=== PATIENT | female | born 1950 | race Caucasian/White ===

== ENCOUNTER → 2017-05-26 08:57 | Outpatient (CLI) | payer MEDICARE, SELFPAY ==
--- NOTE | 2017-05-26 09:01 | RAD_ITS ---
STUDY: X-RAY - RIGHT ANKLE REASON FOR EXAM: Female, 67 years old. Trauma TECHNIQUE: 3 view(s) of the ankle. COMPARISON: None. FINDINGS: Normal visualized distal tibia. There is an obliquely oriented fracture through the distal fibular shaft with minor separation of fracture fragments.. Normal medial and lateral malleoli. Normal tibiotalar articulation and ankle mortise. Normal visualized talus and calcaneus. The visualized subtalar, talonavicular, calcaneocuboid and tarsal articulations are normal. Soft tissue swelling overlying the lateral malleolus. RAD/Ankle min 3 Views IMPRESSION: Acute fracture of the distal fibular shaft. Electronically Signed: Rick Redd MD at 23:59 EST , Service support ,
== END ==
PROVIDERS: Family Provider Nurse Practitioner Family; PCP Nurse Practitioner Family; Visit Provider Orthopaedic Surgery
DX: S82.831A Other fracture of upper and lower end of right fibula, initial encounter for closed fracture (principal); X58.XXXA Exposure to other specified factors, initial encounter
CPT/HCPCS: 73610

== ENCOUNTER → 2017-06-07 11:08 | Outpatient (CLI) | payer MEDICARE, OTHER, SELFPAY ==
[2017-06-07 12:21] LABS: Absolute Neutrophil Count 2.6 X10^3/uL (2.0-7.7); Basophil# 0.06 X10^3/uL; Basophil% 1.1 % (0-1); Eosinophil# 0.15 X10^3/uL; Eosinophils% 2.8 % (0-5); Hematocrit 40.8 % (37-47); Hemoglobin 13.2 g/dl (12.0-15.0); Lymphocyte % 39.3 % (19-41); Mean Corp Hgb Conc 32.4 g/gl (32-36); Mean Corpuscular Hgb 29.9 pg (27.0-32.0); Mean Corpuscular Volume 92.5 fL (81-99); Mean Platelet Vol. 11.8 fl (6.2-12.0); Monocyte# 0.45 X10^3/uL; Monocyte% 8.4 % (0-10); Neutrophil # 2.57 X10^3/uL (2.7-7.7); Neutrophil % 48.2 % (47-70); Platelet Count 287 K/mm3 (150-450); RBC Distribution Width CV 14.3 % (11.6-14.6); RBC Distribution Width SD 47.5 fl (35.1-43.9); Red Blood Count 4.41 M/mm3 (4.2-5.4); White Blood Count 5.3 K/mm3 (4.4-11.0)
[2017-06-07 12:24] LABS: POSITIVE COUNT NO; POSITIVE DIFFERENTIAL NO; POSITIVE MORPHOLOGY NO
[2017-06-07 12:42] LABS: AST(SGOT) 17 U/L (15-37); Alanine Aminotransfer ALT/SGPT 20 U/L (13-56); Albumin, Serum 3.8 g/dL (3.2-5.0); Alkaline Phosphatase 85 U/L (45-117); Anion Gap 7 (5-15); BUN 14 mg/dL (7-18); BUN/Creat Ratio 13.2 RATIO (10-20); Calcium,Total 8.5 mg/dL (8.5-10.1); Chloride 106 mmol/L (98-107); Creatinine, Serum 1.06 mg/dL (0.55-1.02); EST Glomerular Filtration Rate 55 mL/min (>60); Est Glom Filt Rate - Afr Amer 66 mL/min (>60); Globulin 3.7 g/dL (2.2-4.2); Glucose 81 mg/dL (74-106); Potassium 3.9 mmol/L (3.5-5.1); Protein, Total 7.5 g/dL (6.4-8.2); Sodium Level 140 mmol/L (136-145)
== END ==
PROVIDERS: Family Provider Nurse Practitioner Family; PCP Nurse Practitioner Family; Visit Provider Internal Medicine Rheumatology
DX: M06.4 Inflammatory polyarthropathy (principal); M35.00 Sjogren syndrome, unspecified; K21.9 Gastro-esophageal reflux disease without esophagitis; R76.8 Other specified abnormal immunological findings in serum; M17.0 Bilateral primary osteoarthritis of knee
CPT/HCPCS: 36415; 80053; 85025

== ENCOUNTER → 2017-06-23 10:01 | Outpatient (CLI) | payer MEDICARE, OTHER, SELFPAY ==
--- NOTE | 2017-06-23 10:03 | RAD_ITS ---
STUDY: X-RAY - RIGHT ANKLE REASON FOR EXAM: Female, 67 years old. Follow-up fracture. TECHNIQUE: 3 view(s) of the ankle. COMPARISON: May 26, 2017. FINDINGS: Normal visualized distal tibia. There is evidence of callus formation and healing of the oblique distal fibular fracture without change in alignment. Normal tibiotalar articulation and ankle mortise. Normal visualized talus and calcaneus. The visualized subtalar, talonavicular, calcaneocuboid and tarsal articulations are normal. The soft tissue structures are unremarkable. RAD/Ankle min 3 Views IMPRESSION: Healing fracture of the distal fibula. Electronically Signed: Hector Langston DO at 18:04 EDT Tel [phone], Service support ,
== END ==
PROVIDERS: Family Provider Nurse Practitioner Family; PCP Nurse Practitioner Family; Visit Provider Orthopaedic Surgery
DX: S82.831A Other fracture of upper and lower end of right fibula, initial encounter for closed fracture (principal); X58.XXXA Exposure to other specified factors, initial encounter
CPT/HCPCS: 73610

== ENCOUNTER → 2017-12-09 12:57 | Outpatient (CLI) | payer MEDICARE, OTHER, SELFPAY ==
[2017-12-09 14:19] LABS: Absolute Lymphocyte Count 2.12 X10^3/ul (0.83-4.51); Absolute Neutrophil Count 3.3 X10^3/uL (2.0-7.7); Basophil# 0.05 X10^3/uL; Basophil% 0.8 % (0-1); Eosinophil# 0.13 X10^3/uL; Eosinophils% 2.1 % (0-5); Hematocrit 42.1 % (37-47); Hemoglobin 13.3 g/dl (12.0-15.0); Lymphocyte # 2.12 X10^3/ul (4.0); Mean Corp Hgb Conc 31.6 g/gl (32-36); Mean Corpuscular Hgb 29.2 pg (27.0-32.0); Mean Corpuscular Volume 92.5 fL (81-99); Mean Platelet Vol. 11.9 fl (6.2-12.0); Monocyte# 0.48 X10^3/uL; Monocyte% 7.9 % (0-10); Neutrophil # 3.28 X10^3/uL (2.7-7.7); Neutrophil % 54.2 % (47-70); Platelet Count 294 K/mm3 (150-450); RBC Distribution Width CV 14.4 % (11.6-14.6); RBC Distribution Width SD 48.6 fl (35.1-43.9); Red Blood Count 4.55 M/mm3 (4.2-5.4); White Blood Count 6.1 K/mm3 (4.4-11.0)
[2017-12-09 14:20] LABS: POSITIVE COUNT NO; POSITIVE DIFFERENTIAL NO; POSITIVE MORPHOLOGY NO
[2017-12-09 14:31] LABS: ALB/GLOB Ratio 1.1 RATIO (0.9-2.4); AST(SGOT) 20 U/L (15-37); Alanine Aminotransfer ALT/SGPT 26 U/L (13-56); Albumin, Serum 3.7 g/dL (3.2-5.0); Alkaline Phosphatase 77 U/L (45-117); Anion Gap 7 (5-15); BUN 14 mg/dL (7-18); BUN/Creat Ratio 12.7 RATIO (10-20); Calcium,Total 8.8 mg/dL (8.5-10.1); Chloride 107 mmol/L (98-107); EST Glomerular Filtration Rate 53 mL/min (>60); Est Glom Filt Rate - Afr Amer 64 mL/min (>60); Globulin 3.5 g/dL (2.2-4.2); Glucose 78 mg/dL (74-106); Potassium 3.8 mmol/L (3.5-5.1); Protein, Total 7.2 g/dL (6.4-8.2); Sodium Level 144 mmol/L (136-145)
== END ==
PROVIDERS: Family Provider Nurse Practitioner Family; PCP Nurse Practitioner Family; Visit Provider Internal Medicine Rheumatology
DX: M06.4 Inflammatory polyarthropathy (principal); M35.00 Sjogren syndrome, unspecified; K21.9 Gastro-esophageal reflux disease without esophagitis; R76.8 Other specified abnormal immunological findings in serum; M17.0 Bilateral primary osteoarthritis of knee
CPT/HCPCS: 36415; 80053; 85025

== ENCOUNTER → 2018-03-01 08:47 | Outpatient (CLI) | payer MEDICARE, OTHER, SELFPAY ==
[2018-03-01 10:36] LABS: Absolute Lymphocyte Count 1.92 X10^3/ul (0.83-4.51); Absolute Neutrophil Count 2.6 X10^3/uL (2.0-7.7); Basophil# 0.06 X10^3/uL; Basophil% 1.2 % (0-1); Eosinophil# 0.16 X10^3/uL; Eosinophils% 3.1 % (0-5); Hematocrit 41.6 % (37-47); Hemoglobin 13.4 g/dl (12.0-15.0); Lymphocyte # 1.92 X10^3/ul (4.0); Lymphocyte % 37.3 % (19-41); Mean Corp Hgb Conc 32.2 g/gl (32-36); Mean Corpuscular Hgb 29.7 pg (27.0-32.0); Mean Corpuscular Volume 92.2 fL (81-99); Mean Platelet Vol. 12.1 fl (6.2-12.0); Monocyte# 0.43 X10^3/uL; Monocyte% 8.3 % (0-10); Neutrophil # 2.57 X10^3/uL (2.7-7.7); Neutrophil % 49.9 % (47-70); Platelet Count 252 K/mm3 (150-450); RBC Distribution Width CV 14.4 % (11.6-14.6); RBC Distribution Width SD 47.2 fl (35.1-43.9); Red Blood Count 4.51 M/mm3 (4.2-5.4); White Blood Count 5.2 K/mm3 (4.4-11.0)
[2018-03-01 10:43] LABS: POSITIVE COUNT NO; POSITIVE DIFFERENTIAL NO; POSITIVE MORPHOLOGY NO
[2018-03-01 11:19] LABS: ALB/GLOB Ratio 1.1 RATIO (0.9-2.4); AST(SGOT) 19 U/L (15-37); Alanine Aminotransfer ALT/SGPT 25 U/L (13-56); Albumin, Serum 3.7 g/dL (3.2-5.0); Alkaline Phosphatase 71 U/L (45-117); Anion Gap 7 (5-15); BUN 22 mg/dL (7-18); BUN/Creat Ratio 19.3 RATIO (10-20); Calcium,Total 8.8 mg/dL (8.5-10.1); Chloride 106 mmol/L (98-107); Creatinine, Serum 1.14 mg/dL (0.55-1.02); EST Glomerular Filtration Rate 50 mL/min (>60); Est Glom Filt Rate - Afr Amer 61 mL/min (>60); Globulin 3.4 g/dL (2.2-4.2); Glucose 95 mg/dL (74-106); Protein, Total 7.1 g/dL (6.4-8.2); Sodium Level 139 mmol/L (136-145)
--- OUTSIDE RECORDS SUMMARY | 2018-04-12 21:44 | XMS RPT_ITS | Summary of Care ---
:1950 Author Organization [facility] Address [address] [place] [address] Care Team Providers Name Role Phone Delma Solis Jazlyn TOLL MECHANIC Primary Care Provider FosterDelma her September TOLL MECHANIC Unavailable Reason for Referral Evaluate and Treat (Routine) Status Reason Specialty Diagnoses / Procedures Referred By Contact Referred To Contact Closed Audiology Diagnoses Dizziness and giddiness Jesse Matta Julie A., Jr., DO AuD [id number] [place] [address] Evaluate and Treat (Routine) Status Reason Specialty Diagnoses / Procedures Referred By Contact Referred To Contact Closed Audiology Diagnoses Sensorineural hearing loss, bilateral Jesse Matta Julie A., Jr., DO AuD [id number] [place] [address] Reason for Visit Reason Comments 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 duration: 3 months Location: ears Severity: med Associated symptoms: decreased hearing, cerumen impaction. Patient went to urgent care and PCP for clogged ears and dizziness in Nov. (+) tinnitus Patient states her dizziness is not as bad. She describes a mireya boat. No recent audiograms. Hearing Loss Encounter Details Date Type Department Care Team Description 03/01/2018 Office Visit [facility] ENT Paxton, Jesse Sensorineural hearing loss, bilateral (Primary Dx); Physicians Vin Leonard, Dizziness and giddiness; [address] [place] [address] [place] [address] [phone] Allergies Active Allergy Reactions Severity Noted Date Comments Bacitracin Rash Low 02/01/2014 Per patch testing Gold Sodium Thiosulfate Rash Low 02/01/2014 Per patch testing Nickel Rash Low 02/01/2014 Per patch testing as of this encounter Medications Prescription Sig. Disp. Refills Start Date End Date Status hydroxychloroquine Take by mouth . Active (PLAQUENIL) 200 mg tablet pantoprazole (PROTONIX) 40 MG 01/03/2018 Active tablet as of this encounter Active Problems Problem Noted Date Sensorineural hearing loss, bilateral 03/01/2018 Dizziness and giddiness 03/01/2018 Tinnitus of both ears 03/01/2018 Carpal tunnel syndrome on right 08/06/2016 Social History Tobacco Use Types Packs/Day Years Used Date Never Smoker Smokeless Tobacco: Never Used Alcohol Use Drinks/Week oz/Week Comments Yes wine and beer Sex Assigned at Date Recorded Not on file as of this encounter Last Filed Vital Signs Vital Sign Reading Time Taken Blood Pressure 149/79 03/01/2018 10:14 AM EST Pulse 67 03/01/2018 10:14 AM EST Temperature 35.9 ??C (96.6 ??F) 03/01/2018 10:14 AM EST Respiratory Rate - - Oxygen Saturation - - Inhaled Oxygen Concentration - - Weight 81.9 kg (180 lb 8 oz) 03/01/2018 10:14 AM EST Height 162.6 cm (5' 4) 03/01/2018 10:14 AM EST Body Mass Index 30.98 03/01/2018 10:14 AM EST in this encounter Instructions Patient Instructions - Jesse Matta Jr., - 03/01/2018 11:00 AM EST Assessment/Plan: Diagnoses and all orders for this visit: Sensorineural hearing loss, bilateral - Ambulatory referral to Audiology; Future Essentially normal hearing testing as reviewed with the patient on her hearing testing. Dizziness and giddiness - Ambulatory referral to Audiology; Future I have recommended vng testing and she is schedule dfor 28 Apr 2018. I will see her back 7-10 days post testing. Tinnitus of both ears I have discussed the etiology of the patient's tinnitus as it relates to loss of outer hair cells within the cochlea. This loss of cells is testable through the audiogram which was also reviewed withthe patient. Unfortunately, there is no cure for tinnitus though 1 in 10 patients have stated they have improvement with lipoflavenoid vitamin supplements. Currently, the best treatment for tinnitus iscalled masking techniques. This involves background noise to mask or decrease attention on the noise in the ears. This involves having a tv, or radio, or fan on in the background to produce ambient noise. However, any time you start focusing on the sound it will seem louder, if you are startled and y our fight or flight system kicks in it will be louder as all your senses are heightened, the more I discuss the sound the more you will focus on it and it will seem louder. in this encounter Progress Notes Jesse Matta Jr., DO - 03/01/2018 10:21 AM ESTSubjective Patient ID: Michaela Kilgore is a 68 y.o. female. 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 duration: 3 months Location: earsSeverity: med Associated symptoms: decreased hearing, cerumen impaction. Patient went to urgent care and PCP for clogged ears and dizziness in Nov. (+) tinnitus Patient states her dizziness isnot as bad. She describes a mireya boat. No recent audiograms. Dizziness started 3 months ago. Very loud ringing and felt motion. Losing balance and needing stepto compensate for loss of balance. Can now drive where she avoided it previously. Ringing is diminished. Last hearing test was many years ago. The following portions of the patient's history were reviewed and updated as appropriate: allergies,current medications, past family history, past medical history, past social history, past surgical history and problem list. Review of Systems Constitutional: Negative for chills and diaphoresis. HENT: Negative for ear discharge and ear pain. Eyes: Negative for discharge and redness. Respiratory: Negative for apnea and cough. Cardiovascular: Negative for chest pain and palpitations. Musculoskeletal: Negative for neck pain and neck stiffness. Skin: Negative for color change and pallor. Allergic/Immunologic: Negative for immunocompromised state. Neurological: Positive for dizziness. Negative for facial asymmetry and numbness. Hematological: Does not bruise/bleed easily. Psychiatric/Behavioral: Negative for agitation and confusion. Objective Physical Exam Constitutional: She is oriented to person, place, and time. She appears well- developed and well-nourished. The patient is well-developed and well-nourished without obvious deformity. HENT: Head: Normocephalic and atraumatic. Right Ear: Tympanic membrane, external ear and ear canal normal. Left Ear: Tympanic membrane, external ear and ear canal normal. Nose: Nose normal. Eyes: Pupils are equal, round, and reactive to light. Conjunctivae, EOM and lids are normal. Left eye exhibits no chemosis. Neck: Normal range of motion. Neck supple. No tracheal deviation present. No thyromegaly present. Cardiovascular: Normal rate, regular rhythm and normal heart sounds. Pulmonary/Chest: Effort normal and breath sounds normal. No stridor. Lymphadenopathy: Head (right side): No submental, no submandibular, no preauricular, no posterior auricular and no occipital adenopathy present. Head (left side): No submental, no submandibular, no preauricular, no posterior auricular and no occipital adenopathy present. She has no cervical adenopathy. Right cervical: No superficial cervical adenopathy present. Left cervical: No superficial cervical and no deep cervical adenopathy present. Neurological: She is alert and oriented to person, place, and time. Coordination and gait normal. Cranial nerves 2-12 are grossly intact Fine motor touch and tracking appear normal. Rhomberg normal fakuda step test normal felisha hallpike normal Skin: Skin is warm and dry. Psychiatric: She has a normal mood and affect. Her behavior is normal. Her mood appears not anxious.Her affect is not angry. Her speech is not delayed and not slurred. She is not agitated and not aggressive. Assessment/Plan: Diagnoses and all orders for this visit: Sensorineural hearing loss, bilateral - Ambulatory referral to Audiology; Future Essentially normal hearing testing as reviewed with the patient on her hearing testing. Dizziness and giddiness - Ambulatory referral to Audiology; Future I have recommended vng testing and she is schedule dfor 28 Apr 2018. I will see her back 7-10 days post testing. Tinnitus of both ears I have discussed the etiology of the patient's tinnitus as it relates to loss of outer hair cells within the cochlea. This loss of cells is testable through the audiogram which was also reviewed withthe patient. Unfortunately, there is no cure for tinnitus though 1 in 10 patients have stated they have improvement with lipoflavenoid vitamin supplements. Currently, the best treatment for tinnitus iscalled masking techniques. This involves background noise to mask or decrease attention on the noise in the ears. This involves having a tv, or radio, or fan on in the background to produce ambient noise. However, any time you start focusing on the sound it will seem louder, if you are startled and y our fight or flight system kicks in it will be louder as all your senses are heightened, the more I discuss the sound the more you will focus on it and it will seem louder. in this encounter Plan of Treatment Upcoming Encounters Date Type Specialty Care Team Description 04/28/2018 Hospital Encounter Kerry Angel, AuD [address] [place], [place] [id number] 05/05/2018 Office Visit Otolaryngology Jesse Matta Jr., DO [address] [place] [id number] Scheduled Referrals Name Priority Associated Diagnoses Order Schedule Ambulatory referral to Routine Sensorineural hearing loss, Expected: 03/01/2018, Audiology bilateral Expires: 03/01/2019 Ambulatory referral to Routine Dizziness and giddiness Expected: 03/01/2018, Audiology Expires: 03/01/2019 Health Maintenance Due Date Last Done Comments COLONOSCOPY 1950 DEXA SCAN 1950 HEPATITIS C SCREENING 1950 TETANUS EVERY 10 YR 1950 ZOSTER VACCINES (1 of 2) 01/27/2000 PNEUMOCOCCAL VACCINE AGE 65+ (1 of 2 - PCV13) 2015 SEQUENTIAL INFLUENZA VACCINE (#1) 2017 as of this encounter Visit Diagnoses Diagnosis Sensorineural hearing loss, bilateral - Primary Dizziness and giddiness Tinnitus of both ears Unspecified tinnitus
--- OUTSIDE RECORDS SUMMARY | 2018-04-12 21:45 | XMS RPT_ITS ---
:1950 Author Organization OHIP Support Name Relationship Address Phone MARY GELLER Unavailable [phone] + [place] [address] R Unavailable Unavailable Unavailable NOT GIVEN Unavailable Unavailable Unavailable SPIKE RM Unavailable [address] + [place] [address] DUYEN, MARY Unavailable Unavailable + DUYEN, MARY Unavailable [address] + [place] [address] R Unavailable Unavailable Unavailable DUYEN, MARY Unavailable [address] + [place] [address] R Unavailable Unavailable Unavailable DUYEN, MRAY Unavailable [address] + [place] [address] R Unavailable Unavailable Unavailable DUYEN, MARY Unavailable [address] + [place] [address] R Unavailable Unavailable Unavailable DUYEN, MARY Unavailable [address] + [place] [address] R Unavailable Unavailable Unavailable DUYEN, MARY Unavailable [address] + [place] [address] R Unavailable Unavailable Unavailable DUYEN, MARY Unavailable [address] + [place] [address] R Unavailable Unavailable Unavailable DUYEN, MARY Unavailable [address] + [place] [address] R Unavailable Unavailable Unavailable Care Team Providers Name Role Phone Kathia Cardoso Attending Unavailable Kathia Cardoso Referring Unavailable Adwoa Solis SAMPLE MOUNTER-C Primary Care Unavailable Richie Mane Attending Unavailable Adwoa Solis SAMPLE MOUNTER-C Referring Unavailable Adwoa Solis SAMPLE MOUNTER-C Primary Care Unavailable Richie Mane Attending Unavailable Ludowici, Adwoa SAMPLE MOUNTER-C Referring Unavailable Ludowici, Adwoa SAMPLE MOUNTER-C Primary Care Unavailable Richie Mane Attending Unavailable Ludowici, Adwoa SAMPLE MOUNTER-C Primary Care Unavailable Vellanki, Kathia Attending Unavailable Vellanki, Kathia Referring Unavailable Ludowici, Adwoa SAMPLE MOUNTER-C Primary Care Unavailable Richie Mane Attending Unavailable Ludowici, Adwoa SAMPLE MOUNTER-C Referring Unavailable Ludowici, Adwoa SAMPLE MOUNTER-C Primary Care Unavailable Richie Mane Attending Unavailable Ludowici, Adwoa SAMPLE MOUNTER-C Primary Care Unavailable Vellanki, Kathia Attending Unavailable Vellanki, Kathia Referring Unavailable Ludowici, Adwoa SAMPLE MOUNTER-C Primary Care Unavailable Vellanki, Kathia Attending Unavailable Vellanki, Kathia Referring Unavailable Ludowici, Adwoa SAMPLE MOUNTER-C Primary Care Unavailable Richie Perez Admitting Unavailable Richie Perez Attending Unavailable Ludowici Adwoa September Primary Care Unavailable Richie Perez Admitting Unavailable Richie Perez Attending Unavailable LudowiciSeptember Primary Care Unavailable Shelley Conrad Attending Unavailable LudowiciAdwoa September Primary Care Unavailable Shelley Conrad Admitting Unavailable LudowiciAdwoa September Primary Care Unavailable LudowiciSeptember Admitting Unavailable LudowiciSeptember Attending Unavailable ARTEM GONZALES Attending Unavailable [facility] Primary Care Unavailable Kerry Angel Admitting Unavailable Kerry Angel Attending Unavailable CORTNYE VOGT Admitting Unavailable CORTNEY VOGT Attending Unavailable CORTNEY VOGT Attending Unavailable CORTNEY VOGT Referring Unavailable KAREN VOGT Attending Unavailable SELF, SELF Referring Unavailable KAREN VOGT Attending Unavailable CORTNEY VOGT Referring Unavailable PROBLEMS PROBLEMS DATE TYPE CONDITION / CODE ATTENDING STATUS SOURCE 03/15/2018 Admitting Pain / 121() KAREN VOGT Active [facility] Diagnosis A [place] ([place] Repository 03/15/2018 Admitting Decreased Functional KAREN VOGT Active [facility] Diagnosis Strength / 685() A [place] ([place]) Repository 03/01/2018 Admitting Tinnitus, bilateral ARTEM GONZALES Active [facility] diagnosis / H93.13(ICD-10) EARNEST Three Repository 03/01/2018 Admitting Dizziness and ARTEM GONZALES Active [facility] diagnosis giddiness / EARNEST Three R42(ICD-10) Repository 03/01/2018 Admitting Sensorineural ARTEM GONZALES Active [facility] diagnosis hearing loss, EARNEST Three bilateral / Repository H90.3(ICD-10) 03/01/2018 Unknown M06.4 - Inflammatory Vellanki, 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 / [facility] M06.4(ICD-10) Hospital Repository 03/01/2018 Unknown M35.00 - Sicca Vellanki, Active [facility] syndrome, [facility] unspecified / Hospital M35.00(ICD-10) Repository 03/01/2018 Unknown K21.9 - Vellanki, Active [facility] reflux disease Hospital without esophagitis Repository / K21.9(ICD-10) 03/01/2018 Unknown R76.8 - Other Vellanki, Active [facility] specified abnormal [facility] immunological Hospital findings in serum / Repository R76.8(ICD-10) 03/01/2018 Unknown M17.0 - Bilateral Vellanlili, Active [facility] primary [facility] osteoarthritis of Hospital knee / M17.0(ICD-10) Repository 06/23/2017 Unknown S82.831A - Other Richie Mane Active [facility] fracture of upper Community and lower end of Hospital right fibula, Repository initial encounter for closed fracture / S82.831A(ICD-10) 05/11/2017 Admitting Surgical Follow-up / KAREN VOGT [facility] Diagnosis 104() A [place] ([place]) Repository 04/22/2017 Admitting Carpal tunnel CORTNEY VOGT [facility] Diagnosis syndrome, left upper [place] limb / Repository G56.02(ICD-10) 04/16/2017 Admitting Encounter for other VOGTCORTNEY GIRALDO [facility] Diagnosis preprocedural [place] examination / Repository Z01.818(ICD-10) PROCEDURES PROCEDURES No Procedure Records FoundRESULTS RESULTS CBC W/DIFF, AUTOMATED Collected: 03/18/2018 Status: F Source: [facility] TYPE CODE TESTS RESULT OUT OF RANGE REFERENCE UNITS LAB L100.1000 4.4-11.0 K/mm3 Normal WBC 6.0 LAB L100.1200 4.2-5.4 M/mm3 Normal RBC 4.45 LAB L100.1300 12.0-15.0 g/dl Normal HGB 13.0 LAB L100.1400 37-47 % Normal HCT 40.5 LAB L100.1500 81-99 fL Normal MCV 91.0 LAB L100.1600 27.0-32.0 pg Normal MCH 29.2 LAB L100.1700 32-36 g/gl Normal MCHC 32.1 LAB L100.1810 11.6-14.6 % Normal RDW CV 14.0 LAB L100.1820 35.1-43.9 fl High RDW SD 46.6 LAB L100.1900 150-450 K/mm3 Normal PLT 297 LAB L100.2000 6.2-12.0 fl Normal MPV 11.7 LAB L100.2100 47-70 % Normal NEUT% 55.8 LAB L100.2200 19-41 % Normal LY% 34.9 LAB L100.2300 0-10 % Normal MONO% 6.8 LAB L100.2400 0-5 % Normal EO% 2.0 LAB L100.2500 0-1 % Normal BASO% 0.5 LAB L100.2550 0.0-0.9 % Normal IM GRAN % 0.000 Result Comment: IG% - Immature Granulocytes (promyelocytes, myelocytes and metamyelocytes) > 1% indicates that a LEFT SHIFT is Present. LAB L100.2620 2.0-7.7 X10 3/uL Normal Absolute Neut 3.4 LAB L100.2720 0.83-4.51 X10 3/ul Normal Absolute Lymph 2.10 Performed By: #### L100.0100 #### [facility] [address] [place], [place], [address] COMPREHENSIVE METABOLIC Collected: 03/18/2018 Status: F Source: [facility] 12:53 PM [facility] REPOSITORY TYPE CODE TESTS RESULT OUT OF RANGE REFERENCE UNITS LAB L501.0100 74-106 mg/dL Normal GLU 80 Result Comment: Please note revised GLUCOSE reference range effective 2017. LAB L501.1000 7-18 mg/dL Normal BUN 16 LAB L501.1100 0.55-1.02 mg/dL High CREAT,SERUM 1.08 Result Comment: The validity of the calculated GFR AND GFRAA in patients over 70 years has not been determined. Clinical correlation is essential. LAB L501.1110 >60 mL/min Low EST GFR 54 Result Comment: Non- GFR Calc LAB L501.1115 >60 mL/min Normal EST GFR - AA 65 Result Comment: GFR Calc LAB L501.1300 10-20 RATIO Normal BUN/CRE 14.8 LAB L501.1500 6.4-8.2 g/dL T Normal PROT 7.5 LAB L501.1800 3.2-5.0 g/dL Normal ALB 3.8 LAB L501.1950 2.2-4.2 g/dL Normal GLOB 3.7 LAB L501.2000 0.9-2.4 RATIO Normal A/G 1.0 LAB L501.2200 8.5-10.1 mg/dL CA Normal 8.8 LAB L501.4100 15-37 U/L Normal AST 19 LAB L501.4305 45-117 U/L Normal ALK P 66 LAB L501.4405 13-56 U/L Normal ALT 24 LAB L501.4600 0.20-1.00 mg/dL T Normal BILI 0.60 LAB L501.5300 136-145 mmol/L NA Normal 139 LAB L501.5600 3.5-5.1 mmol/L K Normal 3.8 LAB L501.5900 98-107 mmol/L CL Normal 105 LAB L501.6100 21.0-32.0 mmol/L Normal CO2 26.0 LAB L501.6200 5-15 Normal GAP 8 Performed By: #### L500.4050 #### [facility] [address] [place], [place], [address] CBC W/DIFF, AUTOMATED Collected: 03/01/2018 Status: F Source: [facility] 8:54 AM [facility] REPOSITORY TYPE CODE TESTS RESULT OUT OF RANGE REFERENCE UNITS LAB L100.1000 4.4-11.0 K/mm3 Normal WBC 5.2 LAB L100.1200 4.2-5.4 M/mm3 Normal RBC 4.51 LAB L100.1300 12.0-15.0 g/dl Normal HGB 13.4 LAB L100.1400 37-47 % Normal HCT 41.6 LAB L100.1500 81-99 fL Normal MCV 92.2 LAB L100.1600 27.0-32.0 pg Normal MCH 29.7 LAB L100.1700 32-36 g/gl Normal MCHC 32.2 LAB L100.1810 11.6-14.6 % Normal RDW CV 14.4 LAB L100.1820 35.1-43.9 fl High RDW SD 47.2 LAB L100.1900 150-450 K/mm3 Normal PLT 252 LAB L100.2000 6.2-12.0 fl High MPV 12.1 LAB L100.2100 47-70 % Normal NEUT% 49.9 LAB L100.2200 19-41 % Normal LY% 37.3 LAB L100.2300 0-10 % Normal MONO% 8.3 LAB L100.2400 0-5 % Normal EO% 3.1 LAB L100.2500 0-1 % High BASO% 1.2 LAB L100.2550 0.0-0.9 % Normal IM GRAN % 0.200 Result Comment: IG% - Immature Granulocytes (promyelocytes, myelocytes and metamyelocytes) > 1% indicates that a LEFT SHIFT is Present. LAB L100.2620 2.0-7.7 X10 3/uL Normal Absolute Neut 2.6 LAB L100.2720 0.83-4.51 X10 3/ul Normal Absolute Lymph 1.92 Performed By: #### L100.0100 #### [facility] [address] [place], [address] COMPREHENSIVE METABOLIC Collected: 03/01/2018 Status: F Source: [facility] 8:54 AM [facility] REPOSITORY TYPE CODE TESTS RESULT OUT OF RANGE REFERENCE UNITS LAB L501.0100 74-106 mg/dL Normal GLU 95 Result Comment: Please note revised GLUCOSE reference range effective 2017. LAB L501.1000 7-18 mg/dL High BUN 22 LAB L501.1100 0.55-1.02 mg/dL High CREAT,SERUM 1.14 Result Comment: The validity of the calculated GFR AND GFRAA in patients over 70 years has not been determined. Clinical correlation is essential. LAB L501.1110 >60 mL/min Low EST GFR 50 Result Comment: Non- GFR Calc LAB L501.1115 >60 mL/min Normal EST GFR - AA 61 Result Comment: GFR Calc LAB L501.1300 10-20 RATIO Normal BUN/CRE 19.3 LAB L501.1500 6.4-8.2 g/dL T Normal PROT 7.1 LAB L501.1800 3.2-5.0 g/dL Normal ALB 3.7 LAB L501.1950 2.2-4.2 g/dL Normal GLOB 3.4 LAB L501.2000 0.9-2.4 RATIO Normal A/G 1.1 LAB L501.2200 8.5-10.1 mg/dL CA Normal 8.8 LAB L501.4100 15-37 U/L Normal AST 19 LAB L501.4305 45-117 U/L Normal ALK P 71 LAB L501.4405 13-56 U/L Normal ALT 25 LAB L501.4600 0.20-1.00 mg/dL T Normal BILI 0.50 LAB L501.5300 136-145 mmol/L NA Normal 139 LAB L501.5600 3.5-5.1 mmol/L K Normal 4.0 LAB L501.5900 98-107 mmol/L CL Normal 106 LAB L501.6100 21.0-32.0 mmol/L Normal CO2 26.0 LAB L501.6200 5-15 Normal GAP 7 Performed By: #### L500.4050 #### [facility] [address] [place], [address] CBC W/DIFF, AUTOMATED Collected: 12/09/2017 Status: F Source: [facility] 12:57 PM [facility] REPOSITORY TYPE CODE TESTS RESULT OUT OF RANGE REFERENCE UNITS LAB L100.1000 4.4-11.0 K/mm3 Normal WBC 6.1 LAB L100.1200 4.2-5.4 M/mm3 Normal RBC 4.55 LAB L100.1300 12.0-15.0 g/dl Normal HGB 13.3 LAB L100.1400 37-47 % Normal HCT 42.1 LAB L100.1500 81-99 fL Normal MCV 92.5 LAB L100.1600 27.0-32.0 pg Normal MCH 29.2 LAB L100.1700 32-36 g/gl Low MCHC 31.6 LAB L100.1810 11.6-14.6 % Normal RDW CV 14.4 LAB L100.1820 35.1-43.9 fl High RDW SD 48.6 LAB L100.1900 150-450 K/mm3 Normal PLT 294 LAB L100.2000 6.2-12.0 fl Normal MPV 11.9 LAB L100.2100 47-70 % Normal NEUT% 54.2 LAB L100.2200 19-41 % Normal LY% 35.0 LAB L100.2300 0-10 % Normal MONO% 7.9 LAB L100.2400 0-5 % Normal EO% 2.1 LAB L100.2500 0-1 % Normal BASO% 0.8 LAB L100.2550 0.0-0.9 % Normal IM GRAN % 0.000 Result Comment: IG% - Immature Granulocytes (promyelocytes, myelocytes and metamyelocytes) > 1% indicates that a LEFT SHIFT is Present. LAB L100.2620 2.0-7.7 X10 3/uL Normal Absolute Neut 3.3 LAB L100.2720 0.83-4.51 X10 3/ul Normal Absolute Lymph 2.12 Performed By: #### L100.0100 #### [facility] [address] [place], [address] COMPREHENSIVE METABOLIC Collected: 12/09/2017 Status: F Source: [facility] 12:57 PM [facility] REPOSITORY TYPE CODE TESTS RESULT OUT OF RANGE REFERENCE UNITS LAB L501.0100 74-106 mg/dL Normal GLU 78 Result Comment: Please note revised GLUCOSE reference range effective 2017. LAB L501.1000 7-18 mg/dL Normal BUN 14 LAB L501.1100 0.55-1.02 mg/dL High CREAT,SERUM 1.10 Result Comment: The validity of the calculated GFR AND GFRAA in patients over 70 years has not been determined. Clinical correlation is essential. LAB L501.1110 >60 mL/min Low EST GFR 53 Result Comment: Non- GFR Calc LAB L501.1115 >60 mL/min Normal EST GFR - AA 64 Result Comment: GFR Calc LAB L501.1300 10-20 RATIO Normal BUN/CRE 12.7 LAB L501.1500 6.4-8.2 g/dL T Normal PROT 7.2 LAB L501.1800 3.2-5.0 g/dL Normal ALB 3.7 LAB L501.1950 2.2-4.2 g/dL Normal GLOB 3.5 LAB L501.2000 0.9-2.4 RATIO Normal A/G 1.1 LAB L501.2200 8.5-10.1 mg/dL CA Normal 8.8 LAB L501.4100 15-37 U/L Normal AST 20 LAB L501.4305 45-117 U/L Normal ALK P 77 LAB L501.4405 13-56 U/L Normal ALT 26 LAB L501.4600 0.20-1.00 mg/dL T Normal BILI 0.50 LAB L501.5300 136-145 mmol/L NA Normal 144 LAB L501.5600 3.5-5.1 mmol/L K Normal 3.8 LAB L501.5900 98-107 mmol/L CL Normal 107 LAB L501.6100 21.0-32.0 mmol/L Normal CO2 30.0 LAB L501.6200 5-15 Normal GAP 7 Performed By: #### L500.4050 #### [facility] [address] [place], [place], [address] ORTHOPEDIC VISIT Observed: 06/30/2017 Status: F Source: [facility] REPORT 2:55 PM [facility] REPOSITORY [facility] [address] [place] [address] OFFICE VISIT Date of Service: 06/23/17 MR#: [id number] Acct: [id number] Name: MICHAELA GANDHI Rep #: [id number] : 1950 Provider: Richie Mane DO Age/Sex: 67/F Location: [facility] Status: Signed Intake Intake Visit Reasons: RIGHT ANKLE Chief Complaint: right ankle Is patient in pain?: Yes Allergies Latex, Natural Rubber Adverse Reaction (Verified 06/23/17 11:33) Itching minocycline [From Minocin] Adverse Reaction (Verified 06/23/17 11:33) Nausea Medications Hydroxychloroquine [Plaquenil] 200 mg PO BIDCM 10/05/16 [History Confirmed 05/26/17] Oxycodone HCl/Acetaminophen [Percocet 5/325] 1 tab PO Q4H PRN PRN #12 tab 10/05/16 [Rx Confirmed 05/26/17] ibuprofen 800 mg tablet 800 mg PO TID PRN #60 tab 05/17/17 [Rx Confirmed 05/26/17] PFSH Surgical History History of breast implant (Inactive) History of partial knee replacement (Inactive) Gomez's neuroma of left foot (Inactive) [place] teeth removed (Inactive) history of right knee scope (Inactive) lasix right eye (Inactive) Social History Smoking Status: Never smoker HPI RIGHT ANKLE: Details: MICHAELA GANDHI is a 67 year old F here today for a followup on her right ankle. Patient notes that she is improving. She continues to use her crutches with normal shoes for partial weightbearing. Denies numbness, tingling or other associated symptoms. ROS Const Reports system reviewed and no additional complaints, except as docu Eyes Reports system reviewed and no additional complaints, except as docu ENT Reports system reviewed and no additional complaints, except as docu Card Reports system reviewed and no additional complaints, except as docu Resp Reports system reviewed and no additional complaints, except as docu GI Reports system reviewed and no additional complaints, except as docu Reports system reviewed and no additional complaints, except as docu Musc Reports joint pain, Reports stiffness Skin/Breast Reports system reviewed and no additional complaints, except as docu Neuro Yes system reviewed and no additional complaints, except as docu Psych Reports system reviewed and no additional complaints, except as docu Endo Reports system reviewed and no additional complaints, except as docu Ortho Exam Right Ankle Skin/Wound: Yes CDI Contralateral Normal: Yes Exam: absent TTP FX site, TTP Lateral Malleolus, TTP ATFL, TTP Medial Malleolus, TTP Deltoid Ligament or TTP Lisfranc Joint Dorsiflexion 0-20: 20 degrees Plantar Flexion 0-40: 40 degrees Compartments: Compartments: soft ROM: none Pain with ROM, none Crepitus with ROM Tests: Jane Test: 1, Squeeze Test: 1 Anterior Drawer: 0 Motor: Ankle Dorsiflextion: 5, Ankle Plantar Flexion: 5, Ankle Eversion: 5, Ankle Inversion: 5, EHL: 5 Sensation: Deep Peroneal Nerve: I, Superficial Peroneal Nerve: I, Tibial Nerve: I, Sural Nerve: I, Saphenous Nerve: I Pulses: Dorsalis Pedis: 2, Posterior Tibial: 2 ANKLE: X-rays: Evaluated myself the patient-good healing at this point time the distal fibula. No loss of medial clear space changes. Fracture line still mildly visible but definitely good healing process at this point. Left Ankle Skin: Yes CDI Contralateral Normal: Yes Compartments: soft Dorsiflexion 0-20: 20 degrees Plantar Flexion 0-40: 40 degrees ROM: No pain with ROM or crepitus with ROM Anterior Drawer: 0 Tests: Jane Test: 1, Squeeze Test: 1 Motor: Ankle Dorsiflextion: 5, Ankle Plantar Flexion: 5, Ankle Eversion: 5, Ankle Inversion: 5, EHL: 5 Sensation: Deep Peroneal Nerve: I, Superficial Peroneal Nerve: I, Tibial Nerve: I, Sural Nerve: I, Saphenous Nerve: I Pulses: Dorsalis Pedis: 2, Posterior Tibial: 2 Assessment AND Plan Problems 1. Other closed fracture of distal end of right fibula with routine healing, subsequent encounter S82.438Q Plan Assessment: Right closed distal fibular fracture Robbins B stable and healing. Plan: This point time patient is doing very well. Patient is nontender palpation across the fracture site she has been ambulating without her cam boot. Told her if she wants wear a lace up ankle brace wear equivalent that would be fine. Patient does not desire to physical therapy at this point. Go and see the patient back on a as needed basis. As always she does have changes symptoms I do not feel that any new radiographs will be needed. Any issues return. Patient agrees with plan. Orders Orders: Coding Level of Care Code Off vis,est,level 4 Diagnoses Other closed fracture of distal end of right fibula with routine healing, subsequent encounter S82.153U Encounter type: subsequent encounter Fracture type: closed Fracture morphology: other fracture Fracture healing: with routine healing 06/30/17 [id number] <Electronically signed by Richie Mane DO> Date Richie Mane DO Cosigner Signature: Date (if applicable) CC: ANKLE MIN 3 VIEWS Observed: 06/23/2017 Status: F Source: [facility] 10:03 AM [facility] REPOSITORY [facility] [address] [place] [address] Ankle min 3 Views MR#: [id number] Acct: [id number] Name: MICHAELA GANDHI Rep #: [id number] : 1950 F 67 From: Hector Langston DO PCP: YIFAN Chavarria Status: REG CLI Study: Ankle min 3 Views Date of Exam: 06/23/17 Exam# [id number] Ordering Dr: Richie Mane DO STUDY: X-RAY - RIGHT ANKLE REASON FOR EXAM: Female, 67 years old. Follow-up fracture. TECHNIQUE: 3 view(s) of the ankle. COMPARISON: May 26, 2017. FINDINGS: Normal visualized distal tibia. There is evidence of callus formation and healing of the oblique distal fibular fracture without change in alignment. Normal tibiotalar articulation and ankle mortise. Normal visualized talus and calcaneus. The visualized subtalar, talonavicular, calcaneocuboid and tarsal articulations are normal. The soft tissue structures are unremarkable. RAD/Ankle min 3 Views IMPRESSION: Healing fracture of the distal fibula. Electronically Signed: Hector Langston DO at 18:04 EDT Tel [phone], Service support , CC: YIFAN Solis; Richie Mane DO Change Management Lead: Signed CBC W/DIFF, AUTOMATED Collected: 06/07/2017 Status: F Source: [facility] 11:14 AM [facility] REPOSITORY TYPE CODE TESTS RESULT OUT OF RANGE REFERENCE UNITS LAB L100.1000 4.4-11.0 K/mm3 Normal WBC 5.3 LAB L100.1200 4.2-5.4 M/mm3 Normal RBC 4.41 LAB L100.1300 12.0-15.0 g/dl Normal HGB 13.2 LAB L100.1400 37-47 % Normal HCT 40.8 LAB L100.1500 81-99 fL Normal MCV 92.5 LAB L100.1600 27.0-32.0 pg Normal MCH 29.9 LAB L100.1700 32-36 g/gl Normal MCHC 32.4 LAB L100.1810 11.6-14.6 % Normal RDW CV 14.3 LAB L100.1820 35.1-43.9 fl High RDW SD 47.5 LAB L100.1900 150-450 K/mm3 Normal PLT 287 LAB L100.2000 6.2-12.0 fl Normal MPV 11.8 LAB L100.2100 47-70 % Normal NEUT% 48.2 LAB L100.2200 19-41 % Normal LY% 39.3 LAB L100.2300 0-10 % Normal MONO% 8.4 LAB L100.2400 0-5 % Normal EO% 2.8 LAB L100.2500 0-1 % High BASO% 1.1 LAB L100.2550 0.0-0.9 % Normal IM GRAN % 0.200 Result Comment: IG% - Immature Granulocytes (promyelocytes, myelocytes and metamyelocytes) > 1% indicates that a LEFT SHIFT is Present. LAB L100.2620 2.0-7.7 X10 3/uL Normal Absolute Neut 2.6 LAB L100.2720 0.83-4.51 X10 3/ul Normal Absolute Lymph 2.10 Performed By: #### L100.0100 #### [facility] [address] [place], [address] COMPREHENSIVE METABOLIC Collected: 06/07/2017 Status: F Source: [facility] 11:14 AM [facility] REPOSITORY TYPE CODE TESTS RESULT OUT OF RANGE REFERENCE UNITS LAB L501.0100 74-106 mg/dL Normal GLU 81 Result Comment: Please note revised GLUCOSE reference range effective 2017. LAB L501.1000 7-18 mg/dL Normal BUN 14 LAB L501.1100 0.55-1.02 mg/dL High CREAT,SERUM 1.06 Result Comment: The validity of the calculated GFR AND GFRAA in patients over 70 years has not been determined. Clinical correlation is essential. LAB L501.1110 >60 mL/min Low EST GFR 55 Result Comment: Non- GFR Calc LAB L501.1115 >60 mL/min Normal EST GFR - AA 66 Result Comment: GFR Calc LAB L501.1300 10-20 RATIO Normal BUN/CRE 13.2 LAB L501.1500 6.4-8.2 g/dL T Normal PROT 7.5 LAB L501.1800 3.2-5.0 g/dL Normal ALB 3.8 LAB L501.1950 2.2-4.2 g/dL Normal GLOB 3.7 LAB L501.2000 0.9-2.4 RATIO Normal A/G 1.0 LAB L501.2200 8.5-10.1 mg/dL CA Normal 8.5 LAB L501.4100 15-37 U/L Normal AST 17 LAB L501.4305 45-117 U/L Normal ALK P 85 LAB L501.4405 13-56 U/L Normal ALT 20 Result Comment: Please note revised ALT reference range effective 2017. LAB L501.4600 0.20-1.00 mg/dL Normal T BILI 0.60 LAB L501.5300 136-145 mmol/L Normal NA 140 LAB L501.5600 3.5-5.1 mmol/L Normal K 3.9 LAB L501.5900 98-107 mmol/L Normal CL 106 LAB L501.6100 21.0-32.0 mmol/L Normal CO2 27.0 LAB L501.6200 5-15 Normal GAP 7 Performed By: #### L500.4050 #### [facility] [address] [place], [address] ORTHOPEDIC VISIT Observed: 05/28/2017 Status: F Source: [facility] REPORT 2:51 PM [facility] REPOSITORY [facility] [address] [place] [address] OFFICE VISIT Date of Service: 05/26/17 MR#: [id number] Acct: [id number] Name: MICHAELA GANDHI Rep #: [id number] : 1950 Provider: Richie Mane DO Age/Sex: 67/F Location: [facility] Status: Signed Intake Intake Visit Reasons: right ankle Is patient in pain?: Yes Allergies Latex, Natural Rubber Adverse Reaction (Verified 05/26/17 09:10) Itching minocycline [From Minocin] Adverse Reaction (Verified 05/26/17 09:10) Nausea Medications Hydroxychloroquine [Plaquenil] 200 mg PO BIDCM 10/05/16 [History Confirmed 05/26/17] Oxycodone HCl/Acetaminophen [Percocet 5/325] 1 tab PO Q4H PRN PRN #12 tab 10/05/16 [Rx Confirmed 05/26/17] ibuprofen 800 mg tablet 800 mg PO TID PRN #60 tab 05/17/17 [Rx Confirmed 05/26/17] PFSH Surgical History History of breast implant (Inactive) History of partial knee replacement (Inactive) Gomez's neuroma of left foot (Inactive) [place] teeth removed (Inactive) history of right knee scope (Inactive) lasix right eye (Inactive) Social History Smoking Status: Never smoker HPI right ankle: Details: MICHAELA GANDHI is a 67 year old F here today for right ankle. She complains of lateral, medial ankle pain that has been radiating down into her foot. She states recently as the swelling has decreased in the ankle she has noticed some pain radiating slightly up her leg. She does have tingling sensation. No numbness. She continues to wear CAM boot and presents with crutches and walker. ROS Const Reports system reviewed and no additional complaints, except as docu Eyes Reports system reviewed and no additional complaints, except as docu ENT Reports system reviewed and no additional complaints, except as docu Card Reports system reviewed and no additional complaints, except as docu Resp Reports system reviewed and no additional complaints, except as docu GI Reports system reviewed and no additional complaints, except as docu Reports system reviewed and no additional complaints, except as docu Musc Reports joint pain, Reports joint swelling, Reports numbness Skin/Breast Reports system reviewed and no additional complaints, except as docu Neuro Yes numbness Psych Reports system reviewed and no additional complaints, except as docu Endo Reports system reviewed and no additional complaints, except as docu Koby/Lymph Reports system reviewed and no additional complaints, except as docu Aller/Immun Reports system reviewed and no additional complaints, except as docu Ortho Exam Right Wrist/Hand Skin/Wound: Yes suture/gonzalez removed Right Ankle Skin/Wound: Yes CDI, healing well, healed, suture/gonzalez removed, wound cleaned, wound care and Erythema; no Ecchymosis or Soft Tissue Swelling Contralateral Normal: Yes Exam: present TTP FX site and TTP Lateral Malleolus Dorsiflexion 0-20: 20 degrees Plantar Flexion 0-40: 30 degrees Compartments: Compartments: soft ROM: present Pain with ROM Tests: Jane Test: 1, Squeeze Test: 1 Anterior Drawer: 0 Motor: Ankle Dorsiflextion: 5, Ankle Plantar Flexion: 5, Ankle Eversion: 5, Ankle Inversion: 5, EHL: 5 Pulses: Dorsalis Pedis: 2, Posterior Tibial: 2 ANKLE: X-rays: Evaluated myself the patient-stable Robbins B ankle fracture. The mortise remains intact. Assessment AND Plan Problems 1. Other closed fracture of distal end of right fibula with routine healing, subsequent encounter S82.644H Plan Assessment: Right closed distal fibular fracture Robbins B type. Healing accordingly. Plan: This point time the patient's fracture remains stable. Continue wear the cam boot as tolerated. She continues to be protected weightbearing for an additional 4 weeks. Follow-up in 4 weeks with x-rays of the ankle at that time. Any major issues return. Patient agrees to plan. Orders Orders: Coding Level of Care Code Off vis,est,level 4 Diagnoses Other closed fracture of distal end of right fibula with routine healing, subsequent encounter S82.058B Encounter type: subsequent encounter Fracture type: closed Fracture morphology: other fracture Fracture healing: with routine healing 05/28/17 9321 <Electronically signed by Richie Mane DO> Date Richie Mane DO Cosigner Signature: Date (if applicable) CC: ANKLE MIN 3 VIEWS Observed: 05/26/2017 Status: F Source: JOHNNA 9:01 AM [facility] [address] [place] [address] Ankle min 3 Views MR#: [id number] Acct: [id number] Name: MICHAELA GANDHI Rep #: [id number] : 1950 F 67 From: Rick Redd MD PCP: YIFAN Chavarria Status: REG CLI Study: Ankle min 3 Views Date of Exam: 05/26/17 Exam# [id number] Ordering Dr: Richie Mane DO STUDY: X-RAY - RIGHT ANKLE REASON FOR EXAM: Female, 67 years old. Trauma TECHNIQUE: 3 view(s) of the ankle. COMPARISON: None. FINDINGS: Normal visualized distal tibia. There is an obliquely oriented fracture through the distal fibular shaft with minor separation of fracture fragments.. Normal medial and lateral malleoli. Normal tibiotalar articulation and ankle mortise. Normal visualized talus and calcaneus. The visualized subtalar, talonavicular, calcaneocuboid and tarsal articulations are normal. Soft tissue swelling overlying the lateral malleolus. RAD/Ankle min 3 Views IMPRESSION: Acute fracture of the distal fibular shaft. Electronically Signed: Rick Redd MD at 23:59 EST , Service support , CC: YIFAN Solis; Richie Mane DO Change Management Lead: Signed ORTHOPEDIC VISIT Observed: 05/26/2017 Status: F Source: JOHNNA REPORT 7:49 AM [facility] REPOSITORY [facility] Orthopaedics AND Sports Medicine [facility] [place] [address] OFFICE VISIT Date of Service: 05/17/17 MR#: [id number] Acct: [id number] Name: MICHAELA GANDHI Rep #: [id number] : 1950 Provider: Richie Mane DO Age/Sex: 67/F Location: BMS.SMO Status: Signed Intake Intake Visit Reasons: RIGHT ANKLE Is patient in pain?: Yes Allergies Latex, Natural Rubber Adverse Reaction (Verified 10/05/16 10:14) Itching minocycline [From Minocin] Adverse Reaction (Verified 10/05/16 10:14) Nausea Medications Hydroxychloroquine [Plaquenil] 200 mg PO BIDCM 10/05/16 [History Confirmed 10/05/16] Oxycodone HCl/Acetaminophen [Percocet 5/325] 1 tab PO Q4H PRN PRN #12 tab 10/05/16 [Rx] ibuprofen 800 mg tablet 800 mg PO TID PRN #60 tab 05/17/17 [Rx Confirmed 05/17/17] PFSH Surgical History History of breast implant (Inactive) History of partial knee replacement (Inactive) Gomez's neuroma of left foot (Inactive) [place] teeth removed (Inactive) history of right knee scope (Inactive) lasix right eye (Inactive) Social History Smoking Status: Never smoker HPI RIGHT ANKLE: Chief Complaint: right ankle Details: MICHAELA GANDHI is a 67 year old F here today for a right ankle fracture. Patient states that she slipped on ice about a week ago, inverting her ankle. She went to urgent care where she had xrays which showed a fibular fracture. Patient complains of pain over her lateral ankle and into her charles. She also has swelling over her lateral ankle. She has been wearing her cam boot. She denies any pain unless she moves over ankle. She is not taking any pain medications currently. ROS Const Reports system reviewed and no additional complaints, except as docu Eyes Reports system reviewed and no additional complaints, except as docu ENT Reports system reviewed and no additional complaints, except as docu Card Reports system reviewed and no additional complaints, except as docu Resp Reports system reviewed and no additional complaints, except as docu GI Reports system reviewed and no additional complaints, except as docu Reports system reviewed and no additional complaints, except as docu Musc Reports joint pain, Reports joint swelling Skin/Breast Reports system reviewed and no additional complaints, except as docu Neuro Yes system reviewed and no additional complaints, except as docu Psych Reports system reviewed and no additional complaints, except as docu Endo Reports system reviewed and no additional complaints, except as docu Ortho Exam Right Ankle Contralateral Normal: Yes Compartments: Compartments: soft Motor: EHL: 5 Sensation: Deep Peroneal Nerve: I, Superficial Peroneal Nerve: I, Tibial Nerve: I, Sural Nerve: I, Saphenous Nerve: I Pulses: Dorsalis Pedis: 2, Posterior Tibial: 2 ANKLE: Alert and oriented 3 in no acute distress. Appropriate eye contact and affect. Walks an antalgic gait secondary to splinting to her right lower extremity. Remains otherwise intact L1-S1 distributions grossly. She has no right proximal fibula pain no knee pain. She will move her toes without difficulty has good sensation of the superficial deep peroneal nerves. X-rays: Evaluated myself the patient patient has a minimally displaced Robbins B ankle fracture of the distal fibula. Left Ankle Skin: Yes CDI Contralateral Normal: Yes Compartments: soft Dorsiflexion 0-20: 20 degrees Plantar Flexion 0-40: 40 degrees ROM: No pain with ROM or crepitus with ROM Anterior Drawer: 0 Tests: Jane Test: 1, Squeeze Test: 1 Motor: Ankle Dorsiflextion: 5, Ankle Plantar Flexion: 5, Ankle Eversion: 5, Ankle Inversion: 5, EHL: 5 Sensation: Deep Peroneal Nerve: I, Superficial Peroneal Nerve: I, Tibial Nerve: I, Sural Nerve: I, Saphenous Nerve: I Pulses: Dorsalis Pedis: 2, Posterior Tibial: 2 Assessment AND Plan 1. Closed fracture of distal end of right fibula, unspecified fracture morphology, initial encounter S82.192N Plan Assessment: Right closed distal fibula fracture Plan: At this point time and bring the patient back in 1 week for repeat radiographs and consider placing the patient into a cast as long as her soft tissues are amenable. The patient has displacement will consider open reduction internal fixation. The patient shows widening of the mortise also consider operative intervention at that time as well as there may be a bimalleolar variant. X-rays at next. Any issues please contact Plan Detail Other Medications New: Coding Level of Care Code Off vis,est,level 4 Diagnoses Closed fracture of distal end of right fibula, unspecified fracture morphology, initial encounter S82.959N Encounter type: initial encounter Fracture morphology: unspecified fracture morphology Fracture type: closed 05/26/17 0749 <Electronically signed by Richie Mane DO> Date Richie Mane DO Cosigner Signature: Date (if applicable) CC: HISTORY AND PHYSICAL Observed: 05/19/2017 Status: F Source: [place] REPORT 10:19 AM SYSTEM REPOSITORY Type: Surgical Dictated by: To Be Signed by: Transcribed by: Transcribed Date/Time: 04/08/2017 09:54 Dictation Date/Time: 04/07/2017 16:32 Report: DATE OF VISIT: 04/07/2017 HISTORY OF PRESENT ILLNESS: Michaela presents to the office today in followup of her right carpal tunnel release. She is 4? months' out from that and doing well. She has noted some improvement, although does still have some residual numbness and tingling. Her left hand does continue to bother her and she is here today in followup of that nerve conduction study. She does find it hard to do some fine motor skills, but states it is really not even near as bad as her left hand was prior to surgery. PAST MEDICAL HISTORY: Significant for adrenal fatigue, osteoporosis, GERD. PAST SURGICAL HISTORY: T&A, bilateral breast augmentation, torn meniscus, bilateral knee scopes, Lasik eye surgery, Gomez's neuroma excision, hammer toe repair, cataracts, molar screw, partial knee replacements bilaterally, right carpal tunnel release. CURRENT MEDICATIONS: Pantoprazole, Plaquenil, Adrenal C Formula, Adrenal Rebuilder, Adrenal Stress. ALLERGIES: Latex causes itching. SOCIAL HISTORY: She is a nonsmoker, drinks 1-3 eight ounces of alcohol a day. FAMILY HISTORY: Significant for osteoporosis, blood disorder, cancer, diabetes, and stroke. REVIEW OF SYSTEMS: She denies any fever or chills, chest pain, shortness of breath, melena, hematuria, chronic stomach pain, MRSA, red or warm joints, easy bruising, increased thirst, bleeding disorder, depression, seizures, DVT, hearing loss, dentures, or double vision. PHYSICAL EXAMINATION: On exam, she is 5 feet 4 inches tall, weighs 78.7 kg. Temperature is 98.9. She is awake, alert, oriented x3. LUNGS: Clear to auscultation bilaterally. No wheezes, rales, or rhonchi appreciated. HEART: Regular rate and rhythm. No murmur noted. ABDOMEN: Normoactive bowel sounds. RIGHT HAND: Demonstrates incision that is well healed. She is able to make a composite fist. She has 2-point discrimination that is normal in all of her fingers which is improved from preoperatively. LEFT HAND: Positive Tinel's, positive Phalen's, 2-point discrimination normal in all of her fingers. She is able to make a composite fist. She has brisk capillary refill. Skin is warm and dry. DIAGNOSTIC STUDIES: Nerve conduction study of her left hand demonstrates moderate to severe left carpal tunnel syndrome, mild chronic C6-C7 radiculopathy, no evidence of ulnar neuropathy or brachial plexus disorder. ASSESSMENT: 1. Status post right carpal tunnel release, making improvement. 2. Left carpal tunnel syndrome. PLAN: I discussed the natural history and treatment options with her. At this point, she does desire surgical intervention. Plan will be to proceed with a left carpal tunnel release. Risks and benefits have been discussed. She understands and does wish to proceed. This note was dictated by Karen Vogt PA-C. The patient was discussed with and seen by Dr. Vogt, who agrees with the above as stated. XR ANKLE 3+ VIEWS Observed: 05/11/2017 Status: F Source: CATALINA OSPINA 10:[address] [facility] REPOSITORY Exam Date/Time: 05/11/2017 10:51 EST Reason for Exam: Fall Report XR ANKLE 3+ VIEWS RIGHT, 05/11/2017 10:33 AM CLINICAL STATEMENT: Pain after fall. COMPARISON: None. FINDINGS: 3 views of the right ankle were obtained. There is oblique fracture of the distal fibula extending superolateral and posterior from the joint line. This demonstrates approximately one cortical width displacement laterally. A small curvilinear density is also noted at the tip of the lateral malleolus. . Mortise appears congruent. Articular surface is smooth in contour. Soft tissue edema noted around the ankle. IMPRESSION: Minimally displaced distal fibular fracture. Small density adjacent to the tip in the lateral malleolus may represent degenerative change or additional age-indeterminate avulsion fracture. FINAL REPORT Dictated: 05/11/2017 12:45 pm Haseeb Escamilla MD Signed (Electronic Signature): 05/11/2017 12:45 pm Signed by: Haseeb Escamilla MD Technologist: ROCCO PINA FASTING Collected: 04/16/2017 Status: F Source: [facility] 9:41 AM [place] ([place] REPOSITORY TYPE CODE TESTS RESULT OUT OF REFERENCE UNITS RANGE LAB GLF 70-100 MG/DL GLUCOSE 92 FASTING Result Comment: NORMAL <100 mg/dL PREDIABETES 101-126 mg/dL DIABETES 126 mg/dL or higher LAB BUN 7-20 MG/DL BLOOD UREA 17 NITROGEN LAB CRET 0.52-1.04 MG/DL CREATININE SERUM 0.9 LAB NA 137-145 MMOL/L SODIUM 139 LAB K 3.5-5.1 MMOL/L POTASSIUM 4.4 LAB CL 98-107 MMOL/L CHLORIDE 106 LAB CO2 22-30 MMOL/L CO2 26 LAB AGAP 8-16 MMOL/L ANION GAP 7 Low LAB CA 8.4-10.2 MG/DL CALCIUM 9.6 LAB GFR ml/min/1.73 sq.m EST. GFR,Non >60 LAB GFRB ml/min/1.73 sq.m EST. GFR, >60 [place] LAB GFRCOM GFR Information Average GFR for 60-69 years old = 85. Result Comment: Chronic Kidney disease, GFR = <60. Kidney failure, GFR = <15. The GFR estimate is not adjusted for extreme body surface area or acute process, nor has it been validated for women or ethnic groups other than and . Performed By: #### BMPF #### Testing performed at [address] [address] ALLERGIES ALLERGIES DATE TYPE / CODE NAME / CODE REACTION SEVERITY SOURCE 06/23/2017 Drug Latex, Natural Itching Unknown [place] Allergy/416 Rubber/[id number]( [facility] 255015([facility] 06/23/2017 Drug minocycline/B55946 Nausea Unknown [place] Allergy/416 4864(RXNORM) [facility] 721986([facility] ED CT) Repository 02/01/2014 DRUG BACITRACIN Rash [facility] INGREDI/419 Three Repository 185304(SNOM ED CT) 02/01/2014 DRUG GOLD SODIUM Rash [facility] INGREDI/419 THIOSULFATE Three Repository 924849(SNOM ED CT) 02/01/2014 DRUG NICKEL Rash [facility] INGREDI/419 Three Repository 525281(SNOM ED CT) Drug/932811 bacitracin/neomyci Islam 003(SNOMED n/polymyxin B [facility] CT) topical System Repository Drug/275744 Latex Islam 003(SNOMED [facility] CT) System Repository Drug/741148 Minocin Islam 003(OMED [facility] CT) System Repository ENCOUNTERS ENCOUNTERS ADMIT/DISCHARGE ACCOUNT NUMBER ADMITTING ENCOUNTER LOCATION SOURCE CLASS 03/18/2018 [id number] [facility] ding:MTLAB Repository 03/15/2018 [id number] Ambulatory [address]in[address] [place] [address] ([place]) Repository 03/01/2018 [id number] Kerry Angel Ambulatory [facility] Repository 03/01/2018/03/01/20 [id number] Ambulatory Building:[place] [address] [address]NT[address] Three Repository 03/01/2018 [id number] [facility] ding:MTLAB Repository 01/28/2018/01/29/20 [id number] [place], [address] ding:[place] Repository nt Medic 01/27/2018/01/28/20 [id number] [place], Ambulatory [address] ding:[place] Repository nt MedicRoom: Room 2 12/09/2017 [id number] [facility] ding:MTLAB Repository 06/23/2017 [id number] [facility] ding:HPRAD Repository 06/23/2017/06/24/19 [id number] Ambulatory BMSBuilding: [address] Repository 06/07/2017 [id number] Ambulatory [facility] ding:MTLAB Repository 05/26/2017 [id number] Ambulatory [facility] ding:HPRAD Repository 05/26/2017/05/26/19 [id number] Ambulatory BMSBuilding: [place] 18 [facility] Repository 05/17/2017/05/17/19 [id number] Ambulatory BMSBuilding: [place] 18 [facility] Repository 05/11/2017 [id number] Ambulatory [address]in[address] [place] [address] OM System ([place]) Repository 05/11/2017/05/11/[id number] ding:[facility] System Repository 05/11/2017/05/11/[id number] ding:CD:TouchTen [facility] 963778Mmwe: Repository CD:[id number] 04/22/2017/04/22/19 [id number] RANDA, Ambulatory Buildin[address] [place] [address] CORTNEY Osorioom: OPERI System ([place]) Repository 04/16/2017 [id number] Ambulatory BuildinP WOWIO D System ([place]) Repository PAYERS PAYERS ENCOUNTER GUARANTOR PAYER SUBSCRIBER SOURCE 03/18/2018 MICHAELA Murphy Primary MICHAELA L [place] [id number] TR Insurance:MEDICARE WORKMANDOB: Community [address] BPolicy [id number] [facility] [address]Tij: Number: Repository [id number] () Date:2018-03-18 03/18/2018 Secondary MICHAELA L [place] Insurance:AETNA SR WORKMANDOB: Community SUPPLEMENT INSPolicy [id number] [facility] Number: Repository [id number] Date:3712-90-92KMHVN SENIOR SUPPLEMENT INSP[address] [place] [address]RW: 03/18/2018 Tertiary NOT GIVENUNK [place] Insurance:SELF PAY [facility] Number: Effective Repository Date:2018-03-18 03/01/2018 Primary MICHAELA L [facility] Insurance:MedicarePol WORKMANDOB: Miguel A and daniel Number: [id number] [facility] [id number] 6 TR Repository Date:Plan Name:[facility] [address]Uro: () 03/01/2018 Secondary MICHAELA L [facility] Insurance:MedicarePol WORKMANDOB: Miguel A and daniel Number: [id number] [facility] [id number] 6 TR Repository Date:Plan Name:Mcare [address]LOWH[facility]TI[facility] [address]Xks: (HP) 03/01/2018 Tertiary MICHAELA L [facility] Insurance:AetnaPolicy WORKMANDOB: Miguel A and Number: [id number] [facility] [id number] 6 TR Repository Date:Plan Name:[place] [id number]: () 03/01/2018 [facility] L [facility] WORK[facility]ANDOB: Insurance:AETNAPolicy WORKMANDOB: Three Repository Number: [id number] TR [id number] [address], Date:[address] [place] [address]Xnr: [address] [place], [place] [address]WP: (783) () [phone] 03/01/[address] [facility] Insurance:AETNAPolicy WORKMANDOB: Three Repository Number: [id number] [address] Date:[address], [address] [place], [place] [address]SW: 03/01/2018 MICHAELA L Primary MICHAELA L [place] [id number] TR Insurance:MEDICARE WORKMANDOB: Community [address] BPolicy [id number] [facility] [address]Gvf: Number: Repository [id number] (HP) Date:2018-03-01 03/01/2018 Secondary MICHAELA L [place] Insurance:AETNA SR WORKMANDOB: Community SUPPLEMENT INSPolicy [id number] [facility] Number: Repository [id number] Date:2512-65-58DQICA SENIOR SUPPLEMENT [address]SP[address] [address], [place] [address]QU: 03/01/2018 Tertiary NOT GIVENUNK [place] Insurance:SELF PAY [facility] Number: Effective Repository Date:2018-03-01 01/28/2018 MICHAELA L Primary MICHAELA L Islam WORKMANDOB: Insurance:1500 WORKMANDOB: [facility] MEDICARE [id number] System [facility] PRIMARYPolicy Number: [address] Repository [address], Effective [address] [id number]: Date:2018-01-27 - [place] [id number]: 0830-50-46Axqe (HP) Name:CD:[id number] O ()Tel: (000) [address] [address]KUMYJZWWN, 000-0000 () [place] [address]NQ: 01/28/2018 Secondary MICHAELA L Islam Insurance:1500 AETNA WORKMANDOB: [facility] AND [facility] [id number] System INSURANCE [address] Repository COMPANYPolicy Number: [address], Effective [place] [id number]: Date:2018-01-27 - [id number] ()Tel: (000) Name:CD:[id number] 000-0000 () [address] [address]VN: 01/27/2018 MICHAELA L Primary MICHAELA L Islam WORKMANDOB: Insurance:1500 WORKMANDOB: [facility] MEDICARE [id number] System [address] PRIMARYPolicy Number: [address] Repository [address], Effective [address] [id number]: Date:2018-01-27 - [place] [id number]: 2066-04-83Vpmg (HP) Name:CD:[id number] O (HP)Tel: (600) [address] [address], 000-0000 (WP) [place] [address]IS: 01/27/2018 Secondary MICHAELA L Islam Insurance:1500 AETNA WORKMANDOB: [facility] [id number] System INSURANCE [address] [facility] Repository [facility] Number: [address], Effective [place] [id number]: Date:2018-01-27 - [id number] (HP)Tel: (000) Name:CD:[id number] 000-0000 () [address] [address]TS: 12/09/2017 MICHAELA L Primary MICHAELA L [place] [id number] TR Insurance:MEDICARE WORKMANDOB: Community [address], [facility] A [facility] [id number] [place] [address]Ccy: Number: Repository [id number] () Date:2017-12-09 12/09/2017 Secondary MICHAELA L [place] Insurance:AETNA SR WORKMANDOB: Community [facility] [id number] [facility] Number: Repository [id number] Date:3785-96-16MONDK SENIOR SUPPLEMENT INSPO [address] [place] [address]MA: 12/09/2017 Tertiary NOT GIVENUNK [place] Insurance:SELF PAY [facility] Number: Effective Repository Date:2017-12-09 06/23/2017 MICHAELA Primary MICHAELA [place] [id number] TR Insurance:MEDICARE WORKMANDOB: Community [address], [address] A [facility] [id number] Hospital [place] [address]Hhb: Number: Repository [id number] (HP) Date:2017-06-23 06/23/2017 Secondary MICHAELA [place] Insurance:AETNA SR WORKMANDOB: Community SUPPLEMENT [facility] [id number] Hospital Number: Repository [id number] Date:3870-34-14MVIUK SENIOR SUPPLEMENT [address]SPO [address] [address], [place] [address]LR: 06/23/2017 Tertiary NOT GIVENUNK [place] Insurance:SELF PAY [facility] Number: Effective Repository Date:2017-06-23 06/23/2017 MICHAELA Primary MICHAELA [place] [id number] TR Insurance:MEDICARE WORKMANDOB: Community [address], [facility] A [facility] [id number] [facility] Behavioral [facility] [address]Mph: Number: Repository [id number] (HP) Date:2017-05-26 06/23/2017 Secondary MICHAELA [place] Insurance:AETNA SR WORKMANDOB: Community SUPPLEMENT [facility] [id number] Hospital Number: Repository [id number] Date:1238-19-53CLIUY SENIOR SUPPLEMENT [address]SP[address] [address], [place] [address]HD: 06/23/2017 Tertiary NOT GIVENUNK [place] Insurance:SELF PAY [facility] Number: Effective Repository Date:2017-06-23 06/07/2017 MICHAELA Primary MICHAELA [place] [id number] TR Insurance:MEDICARE WORKMANDOB: Community [address] [facility] [id number] Mexico Behavioral Health Institute at [facility] [address]Jta: Number: Repository [id number] (HP) Date:2017-06-07 06/07/2017 Secondary MICHAELA Johnna Insurance:AETNA SR WORKMANDOB: Community SUPPLEMENT [facility] [id number] Hospital Number: Repository [id number] Date:[id number] SENIOR SUPPLEMENT [address], [place] [address]PR: 06/07/2017 Tertiary NOT GIVENUNK Johnna Insurance:SELF PAY [facility] Number: Effective Repository Date:2017-06-07 05/26/2017 MICHAELA Primary MICHAELAJARVIS [employer] [id number] TR Insurance:MEDICARE WORKMANDOB: Community [address] [facility] [id number] Mexico Behavioral Health Institute at [facility] [place] [address]Gek: Number: Repository [id number] (HP) Date:2017-05-26 05/26/2017 Secondary NOT GIVENUNK [place] Insurance:SELF PAY [facility] Number: Effective Repository Date:2017-05-26 05/26/2017 MICHAELA Primary MICHAELA [place] [id number] TR Insurance:MEDICARE WORKMANDOB: [facility] [address] [facility] [address] A [facility] [id number] Mexico Behavioral Health Institute at [facility] [address]Qvt: Number: Repository [id number] (HP) Date:2017-05-17 05/26/2017 Secondary MICHAELA [place] Insurance:AETNAPolicy WORKMANDOB: Community Number: [id number] [facility] [id number] Repository Date:[id number] [facility] [id number] [place] [address]GP: 05/26/2017 Tertiary NOT GIVENUNK [place] Insurance:SELF PAY [facility] Number: Effective Repository Date:2017-05-17 05/17/2017 MICHAELA Primary MICHAELAJARVIS [employer] [id number] TR Insurance:MEDICARE WORKMANDOB: Community [address] [facility] [id number] Mexico Behavioral Health Institute at [facility] [place] [address]Rsv: Number: Repository [id number] (HP) Date:2017-05-11 05/17/2017 Secondary NOT GIVENUNK Johnna Insurance:SELF PAY [facility] Number: Effective Repository Date:2017-05-11 05/11/2017 MICHAELA L Primary MICHAELA Katherine Edmondson WORKMANDOB: Insurance:MedicarePol WORKMANDOB: [facility] [id number] icy Number: Effective [id number] System [facility] [address] Date:2017-05-[address] [facility] [address] Repository [address], [id number] [address], [place] [id number]: Name:CD:[id number] [place] [id number]: [id number], [place] (HP) [phone]: [phone]) (HP) [phone] (WP) 05/11/2017 Secondary MICHAELA L Islam Insurance:COMMERCIAL WORKMANDOB: [facility] [id number] System Number: Effective [facility] [address] Repository Date:2017-05-11 - [facility] [id number] [place] [id number]: Name:CD:[id number] [address] [place] [address] ()Tel: [phone]: (WP) [phone] 05/11/2017 MICHAELA L Primary MICHAELA L Islam WORKMANDOB: Insurance:MedicarePol WORKMANDOB: [facility] [id number] icy Number: Effective [id number] System [facility] Date:2017-05-11 - [facility] Repository [address], [id number] [address] [place], [place] [address], [place] [id number]: Name:CD:[id number] [facility] [id number]: [id number], [place] (HP) [phone]: [phone]) (HP) [phone] (WP) 05/11/2017 Secondary MICHAELA L Islam Insurance:COMMERCIAL WORKMANDOB: [facility] [id number] System Number: Effective [facility] [address] Repository Date:2017-05-11 - [address], [id number] [place] [id number]: Name:CD:[id number] [address] [place] [address] (HP)Tel: [phone]: (WP) [phone]
== END ==
PROVIDERS: Family Provider Nurse Practitioner Family; PCP Nurse Practitioner Family; Referring Provider Internal Medicine Rheumatology; Visit Provider Internal Medicine Rheumatology
DX: M06.4 Inflammatory polyarthropathy (principal); M35.00 Sjogren syndrome, unspecified; K21.9 Gastro-esophageal reflux disease without esophagitis; R76.8 Other specified abnormal immunological findings in serum; M17.0 Bilateral primary osteoarthritis of knee
CPT/HCPCS: 36415; 80053; 85025

== ENCOUNTER → 2018-03-18 12:45 | Outpatient (CLI) | payer MEDICARE, OTHER, SELFPAY ==
[2018-03-18 14:03] LABS: Absolute Neutrophil Count 3.4 X10^3/uL (2.0-7.7); Basophil# 0.03 X10^3/uL; Basophil% 0.5 % (0-1); Eosinophil# 0.12 X10^3/uL; Hematocrit 40.5 % (37-47); Lymphocyte % 34.9 % (19-41); Mean Corp Hgb Conc 32.1 g/gl (32-36); Mean Corpuscular Hgb 29.2 pg (27.0-32.0); Mean Platelet Vol. 11.7 fl (6.2-12.0); Monocyte# 0.41 X10^3/uL; Monocyte% 6.8 % (0-10); Neutrophil # 3.35 X10^3/uL (2.7-7.7); Neutrophil % 55.8 % (47-70); Platelet Count 297 K/mm3 (150-450); RBC Distribution Width SD 46.6 fl (35.1-43.9); Red Blood Count 4.45 M/mm3 (4.2-5.4)
[2018-03-18 14:10] LABS: POSITIVE COUNT NO; POSITIVE DIFFERENTIAL NO; POSITIVE MORPHOLOGY NO
[2018-03-18 14:26] LABS: AST(SGOT) 19 U/L (15-37); Alanine Aminotransfer ALT/SGPT 24 U/L (13-56); Albumin, Serum 3.8 g/dL (3.2-5.0); Alkaline Phosphatase 66 U/L (45-117); Anion Gap 8 (5-15); BUN 16 mg/dL (7-18); BUN/Creat Ratio 14.8 RATIO (10-20); Calcium,Total 8.8 mg/dL (8.5-10.1); Chloride 105 mmol/L (98-107); Creatinine, Serum 1.08 mg/dL (0.55-1.02); EST Glomerular Filtration Rate 54 mL/min (>60); Est Glom Filt Rate - Afr Amer 65 mL/min (>60); Globulin 3.7 g/dL (2.2-4.2); Glucose 80 mg/dL (74-106); Potassium 3.8 mmol/L (3.5-5.1); Protein, Total 7.5 g/dL (6.4-8.2); Sodium Level 139 mmol/L (136-145)
--- OUTSIDE RECORDS SUMMARY | 2018-05-04 07:53 | XMS RPT_ITS ---
:1950 Author Organization OHIP Support Name Relationship Address Phone DUYEN MARY Unavailable [address] + [place] [address] R Unavailable Unavailable Unavailable NOT GIVEN Unavailable Unavailable Unavailable SPIKE RM Unavailable [address] + [place] [address] DUYEN, MARY Unavailable Unavailable + DUYEN, MARY Unavailable [address] + [place] [address] R Unavailable Unavailable Unavailable DUYEN, MARY Unavailable [address] + [place] [address] R Unavailable Unavailable Unavailable DUYEN, MARY Unavailable [address] + [place] [address] R Unavailable Unavailable Unavailable DUYEN, MARY Unavailable [address] + [place] [address] R Unavailable Unavailable Unavailable DUYEN, MARY Unavailable [address] + [place] [address] R Unavailable Unavailable Unavailable DUYEN, MARY Unavailable [address] + [place] [address] R Unavailable Unavailable Unavailable DUYEN, MARY Unavailable [address] + [place] [address] R Unavailable Unavailable Unavailable DUYEN, MARY Unavailable [address] + [place] [address] R Unavailable Unavailable Unavailable Care Team Providers Name Role Phone Richie Perez Admitting Unavailable Richie Perez Attending Unavailable Adwoa Solis Jazlyn Primary Care Unavailable Richie Perez Admitting Unavailable Richie Perez Attending Unavailable [place], Adwoa June Primary Care Unavailable Shelley Conrad Attending Unavailable Will Adwoa September Primary Care Unavailable Shelley Conrad Alejandro Admitting Unavailable [place], Adwoa September Primary Care Unavailable [place], September Admitting Unavailable [place], Adwoa September Attending Unavailable ARTEM GONZALES Attending Unavailable HARPSTER, ADWOA SEPTEMBER Primary Care Unavailable Kerry Angel Admitting Unavailable Kerry Angel Attending Unavailable MAHESH, LANDRY Torres Attending Unavailable CORTNEY TOLENTINO Referring Unavailable LANDRY ARAGON Attending Unavailable SELF, SELF Referring Unavailable Vellanki, Kathia Attending Unavailable Vellanki, Kathia Referring Unavailable [place], Adwoa ORE ROASTER-C Primary Care Unavailable Richie Mane Attending Unavailable [place], Adwoa ORE ROASTER-C Referring Unavailable [place], Adwoa ORE ROASTER-C Primary Care Unavailable Richie Mane Attending Unavailable [place], Adwoa ORE ROASTER-C Referring Unavailable [place], Adwoa ORE ROASTER-C Primary Care Unavailable Richie Mane Attending Unavailable [place], Adwoa ORE ROASTER-C Primary Care Unavailable Vellanki, Kathia Attending Unavailable Vellanki, Kathia Referring Unavailable [place], Adwoa ORE ROASTER-C Primary Care Unavailable Richie Mane Attending Unavailable [place], Adwoa ORE ROASTER-C Referring Unavailable [place], Adwoa ORE ROASTER-C Primary Care Unavailable Richie Mane Attending Unavailable [place], Adwoa ORE ROASTER-C Primary Care Unavailable Vellanki, Kathia Attending Unavailable Vellanki, Kathia Referring Unavailable [place], Adwoa ORE ROASTER-C Primary Care Unavailable Vellanki, Kathia Attending Unavailable Vellanki, Kathia Referring Unavailable [place], Adwoa ORE ROASTER-C Primary Care Unavailable PROBLEMS PROBLEMS DATE TYPE CONDITION / CODE ATTENDING STATUS SOURCE 03/15/2018 Admitting Pain / 121() OLENA ARAGONIE Active [facility] Diagnosis A System ([place]) Repository 03/15/2018 Admitting Decreased Functional LANDRY ARAGON [facility] Diagnosis Strength / 685() A System ([place]) Repository 03/01/2018 Admitting Tinnitus, bilateral ARTEM GONZALES Active [facility] diagnosis / H93.13(ICD-10) EARNEST Three Repository 03/01/2018 Admitting Dizziness and ARTEM GONZALES Active [facility] diagnosis giddiness / EARNEST Three R42(ICD-10) Repository 03/01/2018 Admitting Sensorineural ARTEM GONZALES Active [facility] diagnosis hearing loss, EARNEST Three bilateral / Repository H90.3(ICD-10) 03/01/2018 Unknown M06.4 - Inflammatory Vellanki, 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 / [facility] M06.4(ICD-10) Hospital Repository 03/01/2018 Unknown M35.00 - Sicca Vellanki, Active [facility] syndrome, [facility] unspecified / Hospital M35.00(ICD-10) Repository 03/01/2018 Unknown K21.9 - Vellanki, Active [facility] Gastro-esophageal [facility] reflux disease Hospital without esophagitis Repository / K21.9(ICD-10) 03/01/2018 Unknown R76.8 - Other [place]ellanki, Active [facility] specified abnormal [facility] immunological Hospital findings in serum / Repository R76.8(ICD-10) 03/01/2018 Unknown M17.0 - Bilateral Vellanki, Active [facility] primary [facility] osteoarthritis of Hospital knee / M17.0(ICD-10) Repository 06/23/2017 Unknown S82.831A - Other Richie Mane Active [facility] fracture of upper Community and lower end of Hospital right fibula, Repository initial encounter for closed fracture / S82.831A(ICD-10) 05/11/2017 Admitting Surgical Follow-up / LANDRY ARAGON Active [facility] Diagnosis 104() A System ([place]) Repository PROCEDURES PROCEDURES No Procedure Records FoundRESULTS RESULTS [...] Lymph 2.10 Performed By: #### L100.0100 #### [facility] [address] [place], [address] COMPREHENSIVE METABOLIC Collected: 03/18/2018 Status: F Source: [facility] 12:53 PM [facility] REPOSITORY TYPE CODE TESTS RESULT OUT OF [...] GAP 8 Performed By: #### L500.4050 #### [facility] [address] [facility] [place], [address] CBC W/DIFF, AUTOMATED Collected: 03/01/2018 Status: F Source: [facility] 8:54 AM [facility] REPOSITORY TYPE CODE TESTS RESULT OUT OF [...] Lymph 1.92 Performed By: #### L100.0100 #### [facility] [address] [place], [address] COMPREHENSIVE METABOLIC Collected: 03/01/2018 Status: F Source: [facility] 8:54 AM [facility] REPOSITORY TYPE CODE TESTS RESULT OUT OF [...] GAP 7 Performed By: #### L500.4050 #### [facility] [address] [place], [address] CBC W/DIFF, AUTOMATED Collected: 12/09/2017 Status: F Source: [facility] 12:57 PM [facility] REPOSITORY TYPE CODE TESTS RESULT OUT OF [...] Lymph 2.12 Performed By: #### L100.0100 #### [facility] [address] [place], [place], [address] COMPREHENSIVE METABOLIC Collected: 12/09/2017 Status: F Source: [facility] 12:57 PM [facility] REPOSITORY TYPE CODE TESTS RESULT OUT OF [...] GAP 7 Performed By: #### L500.4050 #### [facility] [address] [place], [address] ORTHOPEDIC VISIT Observed: 06/30/2017 Status: F Source: [facility] 2:55 PM [facility] REPOSITORY [facility] [address] [place] [address] OFFICE VISIT Date of Service: 06/23/17 MR#: [id number] Acct: [id number] Name: ARIAS GANDHI Rep #: [id number] : 1950 Provider: Richie Mane DO Age/Sex: 67/F [place] [facility] Status: Signed Intake Intake Visit Reasons: RIGHT [...] (Inactive) Gomez's neuroma of left foot (Inactive) [place] teeth removed (Inactive) history of right knee scope (Inactive) lasix right eye (Inactive) Social History Smoking Status: Never smoker HPI RIGHT ANKLE: Details: ARIAS GANDHI is a 67 year old F [...] right fibula with routine healing, subsequent encounter S82.303Q Plan Assessment: Right closed distal fibular fracture [...] right fibula with routine healing, subsequent encounter S82.017J Encounter type: subsequent encounter Fracture type: closed Fracture morphology: other fracture Fracture healing: with routine healing 06/30/17 1455 <Electronically signed by Richie Mane DO> Date Richie Mane DO [facility] Centerign Signature: Date (if applicable) CC: ANKLE MIN 3 VIEWS Observed: 06/23/2017 Status: F Source: [facility] 10:03 AM [facility] REPOSITORY [facility] Imaging Services [address] [place] [address] Ankle min 3 Views MR#: [id number] Acct: [id number] Name: ARIAS GANDHI Rep #: [id number] : 1950 F 67 From: Hector aLngston DO PCP: YIFAN Chavarria Status: REG CLI Study: Ankle min 3 Views Date of Exam: 06/23/17 Exam# [id number] Ordering Dr: Richie Mane DO STUDY: X-RAY [...] Hector Langston DO at 18:04 EDT Tel [phone], Service support , CC: YIFAN Solis; Richie Mane DO Timber Robber: Signed CBC W/DIFF, AUTOMATED Collected: 06/07/2017 Status: F Source: [facility] 11:14 AM [facility] REPOSITORY TYPE CODE TESTS RESULT OUT OF [...] Lymph 2.10 Performed By: #### L100.0100 #### [facility] [address] [facility]. [place], [place], [address] COMPREHENSIVE METABOLIC Collected: 06/07/2017 Status: F Source: [facility] 11:14 AM [facility] REPOSITORY TYPE CODE TESTS RESULT OUT OF [...] GAP 7 Performed By: #### L500.4050 #### [facility] [address] [place], [address] ORTHOPEDIC VISIT Observed: 05/28/2017 Status: F Source: [facility] RE[facility] 2:51 PM [facility] REPOSITORY [facility] [address] [place] [address] 089471 OFFICE VISIT Date of Service: 05/26/17 MR#: [id number] Acct: [id number] Name: ARIAS GANDHI Rep #: [id number] : 1950 Provider: Richie Mane DO Age/Sex: 67/F [place] [facility] [place] Status: Signed Intake Intake Visit Reasons: right [...] (Inactive) Gomez's neuroma of left foot (Inactive) [place] teeth removed (Inactive) history of right knee scope (Inactive) lasix right eye (Inactive) Social History Smoking Status: Never smoker HPI right ankle: Details: ARIAS GANDHI is a 67 year old F [...] right fibula with routine healing, subsequent encounter S82.026D Plan Assessment: Right closed distal fibular fracture [...] right fibula with routine healing, subsequent encounter S82.688M Encounter type: subsequent encounter Fracture type: closed Fracture morphology: other fracture Fracture healing: with routine healing 05/28/17 1451 <Electronically signed by Richie Mane DO> Date Richie Mane DO Cosigner Signature: Date (if applicable) CC: ANKLE MIN 3 VIEWS Observed: 05/26/2017 Status: F Source: [facility] 9:01 AM [facility] REPOSITORY [facility] Imaging Services [facility] [place] [address] Ankle min 3 Views MR#: [id number] Acct: [id number] Name: ARIAS GANDHI Rep #: [id number] : 1950 F 67 From: Rick Redd MD PCP: Adwoa [place], ORE ROASTER-C Status: REG CLI Study: Ankle min 3 Views Date of Exam: 05/26/17 Exam# [id number] Ordering Dr: Richie Mane DO STUDY: X-RAY [...] , CC: YIFAN Solis; Richie Mane DO Timber Robber: Signed ORTHOPEDIC VISIT Observed: 05/26/2017 Status: F Source: [facility] 7:49 AM [facility] [address] [place] [address] OFFICE VISIT Date of Service: 05/17/17 MR#: [id number] Acct: [id number] Name: ARIAS GANDHI Rep #: [id number] : 1950 Provider: Richie Mane DO Age/Sex: 67/F Location: [facility] Status: Signed Intake Intake Visit Reasons: RIGHT [...] (Inactive) Gomez's neuroma of left foot (Inactive) [place] teeth removed (Inactive) history of right knee scope (Inactive) lasix right eye (Inactive) Social History Smoking Status: Never smoker HPI RIGHT ANKLE: Chief Complaint: right ankle Details: ARIAS GANDHI is a 67 year old F [...] right fibula, unspecified fracture morphology, initial encounter S82.835Y Plan Assessment: Right closed distal fibula fracture [...] right fibula, unspecified fracture morphology, initial encounter S82.550V Encounter type: initial encounter Fracture morphology: unspecified fracture morphology Fracture type: closed 05/26/17 0749 <Electronically signed by Richie Mane DO> Date Richie Mane DO Cosigner Signature: Date (if applicable) CC: XR ANKLE 3+ VIEWS Observed: 05/11/2017 Status: F Source: [facility] 10:33 AM LOCATED WITHIN [facility] REPOSITORY Exam Date/Time: 05/11/2017 10:51 EST Reason [...] pm Signed by: Haseeb Escamilla MD Technologist: ALLERGIES ALLERGIES DATE TYPE / CODE NAME / CODE REACTION SEVERITY SOURCE 06/23/2017 Drug Latex, Natural Itching Unknown [facility] Allergy/416 Rubber/[id number]( [facility] 969507([facility] Repository 06/23/2017 Drug minocycline/O71381 Nausea Unknown [facility] Allergy/416 4864(RXNORM) [facility] 476423([facility] ED CT) Repository 02/01/2014 DRUG BACITRACIN Rash [facility] INGREDI/419 Three Repository 726864([facility] ED CT) 02/01/2014 DRUG GOLD SODIUM Rash [facility] INGREDI/419 THIOSULFATE Three Repository 406980([facility] ED CT) 02/01/2014 DRUG NICKEL Rash [facility] INGREDI/419 Three Repository 243001([facility] ED CT) Drug/650871 bacitracin/neomyci [place] 003(SNOMED n/polymyxin B [facility]) topical System Repository Drug/952955 Latex [place] 003([facility] CT) System Repository Drug/795438 Minocin [place] 003([facility]) System Repository ENCOUNTERS ENCOUNTERS ADMIT/DISCHARGE ACCOUNT NUMBER ADMITTING ENCOUNTER LOCATION SOURCE CLASS 03/18/2018 [id number] Ambulatory [facility] ding:MTLAB Repository 03/15/2018 [id number] Amb[address] [place] [address] ([place]) Repository 03/01/2018 [id number] Kerry Angel Ambulatory [facility] Repository 03/01/2018/03/01/20 [id number] Ambulatory Building:[place] [address] Three Repository 03/01/2018 [id number] Ambulatory [facility] ding:MTLAB Repository 01/28/2018/01/29/20 [id number] [place] ding:Claremo Repository nt Medic 01/27/2018/01/28/20 [id number] [place], Ambulatory [address] ding:Claremo Repository nt MedicRoom: Room 2 12/09/2017 [id number] Ambulatory [facility] ding:MTLAB Repository 06/23/2017 [id number] Ambulatory [facility] Hospital ding:HPRAD Repository 06/23/2017/06/24/19 [id number] Ambulatory BMSBuilding: [facility] 18 [facility] Hospital Repository 06/07/2017 [id number] Ambulatory [facility] Hospital ding:MTLAB Repository 05/26/2017 [id number] Ambulatory [facility] Hospital ding:HPRAD Repository 05/26/2017/05/26/19 [id number] Ambulatory BMSBuilding: [place] 18 [facility] Hospital Repository 05/17/2017/05/17/19 [id number] Ambulatory BMSBuilding: [place] 18 BMS.[facility] Hospital Repository 05/11/2017 [id number] Amb[address] [place] [address] ([place]) Repository 05/11/2017/05/11/[id number] ding:[facility] Repository 05/11/2017/05/11/[id number] Chris [address] ding:CD:1320 [facility] [address]Zjzd: Repository CD:[id number] 7 PAYERS PAYERS ENCOUNTER GUARANTOR PAYER SUBSCRIBER SOURCE 03/18/2018 ARIAS L Primary ARIAS L [place] [id number] TR Insurance:MEDICARE WORKMANDOB: Community [address], [place] BPolic [id number] [facility] [place] [address]Fvi: Number: Repository [id number] (HP) Date:2018-03-18 03/18/2018 Secondary ARIAS L [facility] Insurance:AETNA SR WORKMANDOB: Community SUPPLEMENT [facility] [id number] [facility] Number: Repository [id number] Date:5548-18-51XPVDW SENIOR SUPPLEMENT [address] [place] [address]RA: 03/18/2018 Tertiary NOT GIVENUNK [place] Insurance:SELF PAY [facility] Number: Effective Repository Date:2018-03-18 03/01/2018 Primary ARIAS L [facility] Insurance:MedicarePol WORKMANDOB: [place] and icy Number: [id number] [facility] [id number] TR Repository Date:Plan Name:[facility] RobertAUDELIAEVERARDO [place] [address]Dss: () 03/01/2018 Secondary ARIAS L [facility] Insurance:MedicarePol WORKMANDOB: [place] and icy Number: [id number] [facility] [id number] 6 TR Repository Date:Plan Name:[facility] RobertROBERTO, [place] [address]Ivv: () 03/01/2018 Tertiary ARIAS L [facility] Insurance:AetnaPolicy WORKMANDOB: [place] and Number: [id number] [facility] [id number] 6 TR Repository Date:Plan Name:[address], [place] [address]Zge: () 03/01/2018 ARIAS L Primary ARIAS L [facility] WORKMANDOB: Insurance:AETNAPolicy WORKMANDOB: Three Repository [id number] Number: [id number] TR [id number] [address]59[facility], Date:[address] [place] [address]sl: [address] [place], [place] [address]WP: [phone] ([phone] 03/01/2018 Secondary ARIAS L [facility] Insurance:AETNAPolicy WORKMANDOB: Three Repository Number: [id number] [address] Date:[address] [place] [address], [address] [place], [place] [address]HF: 03/01/2018 ARIAS L Primary ARIAS L [place] [id number] TR Insurance:MEDICARE WORKMANDOB: Community [address] A BPolicy [id number] [facility] [address]Jki: Number: Repository [id number] () Date:2018-03-01 03/01/2018 Secondary ARIAS L [facility] Insurance:AETNA SR WORKMANDOB: Community SUPPLEMENT INSPolicy [id number] [facility] Number: Repository [id number] Date:4956-81-12OZTDB SENIOR SUPPLEMENT [address] [place] [address]GW: 03/01/2018 Tertiary NOT GIVENUNK [place] Insurance:SELF PAY Community [facility] Number: Effective Repository Date:2018-03-01 01/28/2018 ARIAS L Primary ARIAS L [place] WORKMANDOB: Insurance:1500 WORKMANDOB: [facility] [id number] MEDICARE [id number] System [facility] PRIMARYPolicy Number: 6 [facility] [address] Repository [place], [place] [id number]: Date:2018-01-27 - [place] [id number]: 4810-50-12Pjzq (HP) Name:CD:[id number] O (HP)Tel: (000) [address]VV[address], 000-0000 (WP) [place] [address]BI: 01/28/2018 Secondary ARIAS Katherine Edmondson Insurance:1500 AETNA WORKMANDOB: [facility] AND LIFE [id number] System INSURANCE 6 [facility] Repository COMPANYPolicy Number: [id number], Effective [place] [id number]: Date:2018-01-27 - 7986-12-47Ghvf ()Tel: (000) Name:CD:[id number] 000-0000 () [address] [address]GJ: 01/27/2018 ARIAS L Primary ARIAS Katherine Edmondson WORKMANDOB: Insurance:1500 WORKMANDOB: [facility] [id number] MEDICARE [id number] System [facility] PRIMARYPolicy Number: 6 [facility] Repository [place], Effective [address], [place] [id number]: Date:2018-01-27 - [place] [id number]: [id number] (HP) Name:CD:[id number] O (HP)Tel: (000) [address]RHVFWHCSM, 000-0000 (WP) [place] [address]SF: 01/27/2018 Secondary ARIAS Katherine Edmondson Insurance:1500 AETNA WORKMANDOB: [facility] AND LIFE [id number] System INSURANCE 6 [facility] Repository COMPANYPolicy Number: [id number], Effective [place] [id number]: Date:2018-01-27 - 7600-71-78Yuat ()Tel: (000) Name:CD:[id number] 000-0000 (WP) [address] [address]FD: 12/09/2017 ARIAS L Primary ARIAS L [facility] [id number] TR Insurance:MEDICARE WORKMANDOB: Community [address], [place] A [facility] [id number] [place] [address]Pxd: Number: Repository [id number] (HP) Date:2017-12-09 12/09/2017 Secondary ARIAS L [place] Insurance:AETNA SR WORKMANDOB: Community SUPPLEMENT [facility] [id number] Hospital Number: Repository [id number] Date:5616-20-60GGILB SENIOR SUPPLEMENT [address] [address], [place] [address]NK: 12/09/2017 Tertiary NOT GIVENUNK [place] Insurance:SELF PAY [facility] Number: Effective Repository Date:2017-12-09 06/23/2017 ARIAS Primary ARIAS [place] [id number] TR Insurance:MEDICARE WORKMANDOB: Community [address], [place] A [facility] [id number] Hospital [place] [address]Ztl: Number: Repository [id number] (HP) Date:2017-06-23 06/23/2017 Secondary ARIAS [place] Insurance:AETNA SR WORKMANDOB: Community SUPPLEMENT [facility] [id number] Hospital Number: Repository [id number] Date:1110-14-81SJKTX SENIOR SUPPLEMENT [address] [address], [place] [address]JF: 06/23/2017 Tertiary NOT GIVENUNK [place] Insurance:SELF PAY [facility] Number: Effective Repository Date:2017-06-23 06/23/2017 ARIAS Primary ARIAS [place] [id number] TR Insurance:MEDICARE WORKMANDOB: Community [address], [place] A [facility] [id number] Hospital [place] [address]Zef: Number: Repository [id number] (HP) Date:2017-05-26 06/23/2017 Secondary ARIAS [place] Insurance:AETNA SR WORKMANDOB: Community SUPPLEMENT [facility] [id number] Hospital Number: Repository [id number] Date:2178-58-74TRGCK SENIOR SUPPLEMENT [address] [address], [place] [address]MX: 06/23/2017 Tertiary NOT GIVENUNK [place] Insurance:SELF PAY [facility] Number: Effective Repository Date:2017-06-23 06/07/2017 ARIAS Primary ARIAS [place] [id number] TR Insurance:MEDICARE WORKMANDOB: Community [address] [place] [facility] [id number] [place] [address]Dvo: Number: Repository [id number] (HP) Date:2017-06-07 06/07/2017 Secondary ARIAS [place] Insurance:AETNA SR WORKMANDOB: Community SUPPLEMENT [facility] [id number] Hospital Number: Repository [id number] Date:9586-55-12JFDJN SENIOR SUPPLEMENT [address] [address]PGZPFK, [place] [address]EE: 06/07/2017 Tertiary NOT GIVENUNK [place] Insurance:SELF PAY [facility] Number: Effective Repository Date:2017-06-07 05/26/2017 ARIAS Primary ARIAS [place] [id number] TR Insurance:MEDICARE WORKMANDOB: Community [address], [address] [facility] [id number] [place] [address]Gjj: Number: Repository [id number] (HP) Date:2017-05-26 05/26/2017 Secondary NOT GIVENUNK [place] Insurance:SELF PAY [facility] Number: Effective Repository Date:2017-05-26 05/26/2017 ARIAS Primary ARIAS [place] [id number] TR Insurance:MEDICARE WORKMANDOB: Community [address], [address] [facility] [id number] Hospital [place] [address]Dvn: Number: Repository [id number] (HP) Date:2017-05-17 05/26/2017 Secondary ARIAS [place] Insurance:AETNAPolicy WORKMANDOB: Community Number: [id number] Hospital [id number] Repository Date:6237-60-[address]MMMAURA TAPIA [address]PY: 05/26/2017 Tertiary NOT GIVENUNK [place] Insurance:SELF PAY [facility] Number: Effective Repository Date:2017-05-17 05/17/2017 ARIAS Primary ARIAS [place] [id number] TR Insurance:MEDICARE WORKMANDOB: Community [address], [place] A [facility] [id number] [address]Syc: Number: Repository [id number] (HP) Date:2017-05-11 05/17/2017 Secondary NOT GIVENUNK [place] Insurance:SELF PAY [facility] Number: Effective Repository Date:2017-05-11 05/11/2017 ARIAS L Primary ARIAS L [place] WORKMANDOB: Insurance:MedicarePol WORKMANDOB: [place] [facility] [id number] icy Number: Effective [id number] [facility] Date:2017-05-11 - [facility] Repository [address] [place] [address] [id number] [address] [place] [address] [id number]: Name:[id number] [facility] [id number]: [id number], [place] (HP) [id number]: [phone] ([phone] (WP) 05/11/2017 Secondary ARIAS L Mosque Insurance:COMMERCIAL WORKMANDOB: [facility] [id number] System Number: Effective [facility] Repository Date:2017-05-11 - [facility], [id number] [place] [id number]: Name:[id number] BOX EthanSuzan ID ()Tel: [phone]: (WP) [address]/11/2017 ARIAS Murphy Primary ARIAS Edmondson WORKMANDOB: Insurance:MedicarePol WORKMANDOB: [facility] [id number] icy Number: Effective [id number] System [facility] Date:2017-05-11 [facility] Repository [address] [place] [address], [id number] [address] [place] [address] [id number]: Name:[id number] BOX [place] [id number]: [id number], [place] () [id number]: [phone] (WP) 05/11/2017 Secondary ARIAS Edmondson Insurance:COMMERCIAL WORKMANDOB: [facility] INSURANCEPolicy [id number] System Number: Effective [facility] Repository Date:2017-05-11[place], [id number] [id number]: Name:[id number] BOX [facility] [place] ()Tel: [phone]: (WP) [phone]
== END ==
PROVIDERS: Family Provider Nurse Practitioner Family; PCP Nurse Practitioner Family; Referring Provider Internal Medicine Rheumatology; Visit Provider Internal Medicine Rheumatology
DX: L40.59 Other psoriatic arthropathy (principal); M35.00 Sjogren syndrome, unspecified; L40.8 Other psoriasis; K21.9 Gastro-esophageal reflux disease without esophagitis; R76.8 Other specified abnormal immunological findings in serum; M17.0 Bilateral primary osteoarthritis of knee
CPT/HCPCS: 36415; 80053; 85025

== ENCOUNTER → 2018-05-31 14:28 | Outpatient (CLI) | payer MEDICARE, OTHER, SELFPAY ==
[2018-05-31 15:54] LABS: ALB/GLOB Ratio 1.1 RATIO (0.9-2.4); AST(SGOT) 27 U/L (15-37); Alanine Aminotransfer ALT/SGPT 31 U/L (13-56); Albumin, Serum 3.6 g/dL (3.2-5.0); Alkaline Phosphatase 66 U/L (45-117); Anion Gap 8 (5-15); BUN 16 mg/dL (7-18); BUN/Creat Ratio 15.8 RATIO (10-20); Calcium,Total 8.3 mg/dL (8.5-10.1); Chloride 105 mmol/L (98-107); Creatinine, Serum 1.01 mg/dL (0.55-1.02); EST Glomerular Filtration Rate 58 mL/min (>60); Est Glom Filt Rate - Afr Amer 70 mL/min (>60); Globulin 3.3 g/dL (2.2-4.2); Glucose 79 mg/dL (74-106); Potassium 3.7 mmol/L (3.5-5.1); Protein, Total 6.9 g/dL (6.4-8.2); Sodium Level 139 mmol/L (136-145)
[2018-05-31 16:19] LABS: Hematocrit 40.8 % (37-47); Hemoglobin 13.4 g/dl (12.0-15.0); Red Blood Count 4.45 M/mm3 (4.2-5.4); White Blood Count 4.5 K/mm3 (4.4-11.0)
[2018-05-31 16:20] LABS: Basophil% 0.2 % (0-1); Differential Indicated SCAN CRITERIA MET; Eosinophils% 2.2 % (0-5); Lymphocyte % 56.1 % (19-41); Mean Corp Hgb Conc 32.8 g/gl (32-36); Mean Corpuscular Hgb 30.1 pg (27.0-32.0); Mean Corpuscular Volume 91.7 fL (81-99); Mean Platelet Vol. 11.5 fl (6.2-12.0); Neutrophil # 1.54 X10^3/uL (2.7-7.7); Neutrophil % 34.5 % (47-70); POSITIVE COUNT NO; POSITIVE DIFFERENTIAL NO; POSITIVE MORPHOLOGY YES; Platelet Count 227 K/mm3 (150-450); RBC Distribution Width CV 13.9 % (11.6-14.6); RBC Distribution Width SD 46.1 fl (35.1-43.9)
[2018-05-31 16:21] LABS: Absolute Neutrophil Count 1.5 X10^3/uL (2.0-7.7); Basophil# 0.01 X10^3/uL; Monocyte# 0.31 X10^3/uL; Platelet Estimate ADEQUATE (ADEQ)
[2018-05-31 16:22] LABS: Anisocytosis RARE; Macrocytosis RARE
[2018-06-02 09:11] LABS: Pathologist Review Reviewed
== END ==
PROVIDERS: Family Provider Nurse Practitioner Family; PCP Nurse Practitioner Family; Referring Provider Internal Medicine Rheumatology; Visit Provider Internal Medicine Rheumatology
DX: L40.59 Other psoriatic arthropathy (principal); M35.00 Sjogren syndrome, unspecified; L40.8 Other psoriasis; K21.9 Gastro-esophageal reflux disease without esophagitis; R76.8 Other specified abnormal immunological findings in serum; M17.0 Bilateral primary osteoarthritis of knee
CPT/HCPCS: 36415; 80053; 85025

== ENCOUNTER → 2018-09-02 | Outpatient (CLI) | payer MEDICARE, OTHER, SELFPAY ==
[2018-09-02 16:02] LABS: Absolute Lymphocyte Count 2.07 X10^3/ul (0.83-4.51); Absolute Neutrophil Count 3.9 X10^3/uL (2.0-7.7); Basophil# 0.05 X10^3/uL; Basophil% 0.8 % (0-1); Eosinophil# 0.13 X10^3/uL; Hematocrit 41.7 % (37-47); Hemoglobin 13.5 g/dl (12.0-15.0); Lymphocyte # 2.07 X10^3/ul (4.0); Lymphocyte % 31.5 % (19-41); Mean Corp Hgb Conc 32.4 g/gl (32-36); Mean Corpuscular Hgb 29.2 pg (27.0-32.0); Mean Corpuscular Volume 90.3 fL (81-99); Mean Platelet Vol. 11.3 fl (6.2-12.0); Monocyte# 0.45 X10^3/uL; Monocyte% 6.8 % (0-10); Neutrophil # 3.88 X10^3/uL (2.7-7.7); Neutrophil % 58.9 % (47-70); Platelet Count 306 K/mm3 (150-450); RBC Distribution Width CV 14.1 % (11.6-14.6); RBC Distribution Width SD 46.6 fl (35.1-43.9); Red Blood Count 4.62 M/mm3 (4.2-5.4); White Blood Count 6.6 K/mm3 (4.4-11.0)
[2018-09-02 16:10] LABS: POSITIVE COUNT NO; POSITIVE DIFFERENTIAL NO; POSITIVE MORPHOLOGY NO
[2018-09-02 16:21] LABS: AST(SGOT) 16 U/L (15-37); Alanine Aminotransfer ALT/SGPT 21 U/L (13-56); Albumin, Serum 3.6 g/dL (3.2-5.0); Alkaline Phosphatase 71 U/L (45-117); Anion Gap 8 (5-15); BUN 16 mg/dL (7-18); Calcium,Total 8.7 mg/dL (8.5-10.1); Chloride 107 mmol/L (98-107); Creatinine, Serum 1.14 mg/dL (0.55-1.02); EST Glomerular Filtration Rate 50 mL/min (>60); Est Glom Filt Rate - Afr Amer 61 mL/min (>60); Globulin 3.7 g/dL (2.2-4.2); Glucose 78 mg/dL (74-106); Potassium 3.5 mmol/L (3.5-5.1); Protein, Total 7.3 g/dL (6.4-8.2); Sodium Level 142 mmol/L (136-145)
== END | disposition home or self-care (01) ==
LOC: MTLAB 14:37
PROVIDERS: Family Provider Nurse Practitioner Family; PCP Nurse Practitioner Family; Referring Provider Internal Medicine Rheumatology; Visit Provider Internal Medicine Rheumatology
DX: L40.59 Other psoriatic arthropathy (principal); M35.00 Sjogren syndrome, unspecified; L40.8 Other psoriasis; K21.9 Gastro-esophageal reflux disease without esophagitis; R76.8 Other specified abnormal immunological findings in serum; M17.0 Bilateral primary osteoarthritis of knee
CPT/HCPCS: 36415; 80053; 85025

== ENCOUNTER → 2019-01-19 15:48 | Outpatient (CLI) | payer MEDICARE, OTHER, SELFPAY ==
[2019-01-27 11:31] LABS: HPV APTIMA, High Risk Positive (Negative); HPV Reflexed? YES, CHARGE PATIENT
== END ==
PROVIDERS: Family Provider Nurse Practitioner Family; PCP Nurse Practitioner Family; Referring Provider Obstetrics & Gynecology; Visit Provider Obstetrics & Gynecology
DX: Z12.4 Encounter for screening for malignant neoplasm of cervix (principal)
CPT/HCPCS: 87624; 88175; G0145

== ENCOUNTER → 2019-02-22 14:28 | Outpatient (CLI) | payer MEDICARE, OTHER, SELFPAY ==
[2019-02-22 15:24] LABS: Absolute Neutrophil Count 4.5 X10^3/uL (2.0-7.7); Basophil# 0.04 X10^3/uL; Basophil% 0.6 % (0-1); Eosinophil# 0.15 X10^3/uL; Eosinophils% 2.1 % (0-5); Hemoglobin 12.5 g/dL (12.0-15.0); Lymphocyte % 26.5 % (19-41); Mean Corp Hgb Conc 31.3 g/dL (32-36); Mean Corpuscular Hgb 28.9 pg (27.0-32.0); Mean Corpuscular Volume 92.4 fL (81-99); Mean Platelet Vol. 11.9 fl (6.2-12.0); Monocyte# 0.56 X10^3/uL; Monocyte% 7.8 % (0-10); NRBC Flagged by Analyzer 0 % (0-5); Neutrophil # 4.51 X10^3/uL (2.7-7.7); Neutrophil % 62.7 % (47-70); Platelet Count 267 K/mm3 (150-450); RBC Distribution Width SD 47.4 fl (35.1-43.9); Red Blood Count 4.33 M/mm3 (4.2-5.4); White Blood Count 7.2 K/mm3 (4.4-11.0)
[2019-02-22 15:39] LABS: ALB/GLOB Ratio 1.2 RATIO (0.9-2.4); AST(SGOT) 18 U/L (15-37); Alanine Aminotransfer ALT/SGPT 23 U/L (13-56); Albumin, Serum 3.8 g/dL (3.2-5.0); Alkaline Phosphatase 64 U/L (45-117); Anion Gap 9 (5-15); BUN 14 mg/dL (7-18); BUN/Creat Ratio 14.3 RATIO (10-20); Calcium,Total 8.9 mg/dL (8.5-10.1); Chloride 100 mmol/L (98-107); Creatinine, Serum 0.98 mg/dL (0.55-1.02); EST Glomerular Filtration Rate 60 mL/min (>60); Est Glom Filt Rate - Afr Amer 72 mL/min (>60); Globulin 3.3 g/dL (2.2-4.2); Glucose 88 mg/dL (74-106); Potassium 3.8 mmol/L (3.5-5.1); Protein, Total 7.1 g/dL (6.4-8.2); Sodium Level 137 mmol/L (136-145)
== END ==
PROVIDERS: Family Provider Nurse Practitioner Family; PCP Nurse Practitioner Family; Referring Provider Internal Medicine Rheumatology; Visit Provider Internal Medicine Rheumatology
DX: L40.59 Other psoriatic arthropathy (principal); L40.8 Other psoriasis; M35.00 Sjogren syndrome, unspecified; K21.9 Gastro-esophageal reflux disease without esophagitis; R76.8 Other specified abnormal immunological findings in serum; M17.0 Bilateral primary osteoarthritis of knee
CPT/HCPCS: 36415; 80053; 85025

== ENCOUNTER → 2019-02-22 17:05 | Outpatient (CLI) | payer MEDICARE, OTHER, SELFPAY ==
--- NOTE | 2019-02-22 15:30 | CER_PTH ---
PATIENT: ARIAS GELLER LOC: [facility] U#:[id number] AGE/SX: 75/F ROOM: RE02/22/[address]: Dr. Coy Raymundo MD : 1950 BED: DIS: SPEC #: [id number] RECD: 02/22/19 17:05 STATUS: PATRICK BLU #: [id number] MIRANDA: 02/22/19 15:[address]: Coy Raymundo DEPT: SURGICAL PATHOLOGY RECD BY: Onel Rivera ENTERED: 02/23/19 11:32 SP TYPE: CERV OTHR DR: Delma Solis, ANNALISE-C Tissues: A - Uterine cervix, NOS B - Uterine cervix, NOS Procedures: Surgery Specimen Level IV HEADER OPERATION: Colposcopy PRE-OP DIAGNOSIS: R87.610, R87.810 TISSUE SUBMITTED: A - Cervical biopsy four quad, B - ECC MICROSCOPIC DIAGNOSIS A. Cervix, four-quadrant biopsy: Negative for dysplasia. Mild chronic inflammation. See comment. B. ECC: Fragments of benign ecto- and endocervical epithelium, blood and mucous, negative for dysplasia. [place]:cristin 02/24/19 COMMENT A. The specimen predominantly consists of squamous epithelium with rare minute fragment of endocervical epithelium. MICROSCOPIC DESCRIPTION Slides are reviewed. GROSS DESCRIPTION A - Received in fixative is one container labeled with the patient's name and designated cervical biopsy four quadrant. The specimen consists of multiple irregular fragments of light hernandez soft tissue that in aggregate measure 1 x 0.2 x 0.1 cm. The specimen is totally submitted in one cassette. B - Received in fixative is one container labeled with the patient's name and designated ECC. The specimen consists of multiple fragments of hemorrhagic mucoid tissue that in aggregate measure 1 x 1 x 0.1 cm. The specimen is totally submitted in one cassette. / [place]:cristin 02/23/19 TC:3 CPT: 05549 x2
== END ==
PROVIDERS: Family Provider Nurse Practitioner Family; PCP Nurse Practitioner Family; Referring Provider Obstetrics & Gynecology; Visit Provider Obstetrics & Gynecology
DX: R87.610 Atypical squamous cells of undetermined significance on cytologic smear of cervix (ASC-US) (principal); R87.810 Cervical high risk human papillomavirus (HPV) DNA test positive; L40.59 Other psoriatic arthropathy; L40.8 Other psoriasis; M35.00 Sjogren syndrome, unspecified; K21.9 Gastro-esophageal reflux disease without esophagitis; R76.8 Other specified abnormal immunological findings in serum; M17.0 Bilateral primary osteoarthritis of knee
CPT/HCPCS: 36415; 80053; 85025; 88305